=== PATIENT | male | born 1940 | race Caucasian/White ===

== ENCOUNTER → 2016-12-23 | Outpatient (CLI) | payer MEDICARE ==
[2016-12-23 12:31] LABS: Appearance,Urine Clear (Clear); Bilirubin,Urine Negative (Negative); Glucose,Urine (UA) Trace (Negative); Ketones,Urine Negative (Negative); Leukocyte Esterase,Urine Negative (Negative); Nitrite,Urine Negative (Negative); Protein,Urine Trace (Negative); Specific Gravity,Urine 1.012 (1.001-1.035); UA Billing (MACRO vs. MICRO) CHEM; Urobilinogen,Urine <2.0 mg/dL (<2.0)
[2016-12-23 13:26] LABS: % Iron Saturation 27.6 % (20-50)
== END | disposition home or self-care (01) ==
LOC: LABWHC1 11:54
PROVIDERS: ATTEND Nurse Practitioner Family
DX: D64.9 Anemia, unspecified (principal); E21.3 Hyperparathyroidism, unspecified; M10.9 Gout, unspecified; N39.0 Urinary tract infection, site not specified; Z94.0 Kidney transplant status
CPT/HCPCS: 36415; 81003; 82306; 82728; 83540; 83550; 83970

== ENCOUNTER → 2017-01-09 | Outpatient (CLI) | payer MEDICARE ==
[2017-01-09 10:20] LABS: Basophils % (A) 1 %; CHCM 31.9; Eosinophils # (A) 0.1 k/uL (0-0.7); Eosinophils % (A) 1 %; HCT 37.3 % (39.0-53.0); HDW 3.03; HGB 11.7 gm/dL (13.0-17.5); Hypochromasia Slight; Luc # (Auto) 0.13; Luc % (Auto) 2; Lymphocytes # (A) 1.6 k/uL (1.0-4.8); Lymphocytes % (A) 24 %; MCH 28.7 pg (25.0-35.0); MCHC 31.4 g/dL (31.0-37.0); MCV 91.5 fL (80.0-100.0); Mean Platelet Volume 7.2; Monocytes # (A) 0.4 k/uL (0-1.0); Monocytes % (A) 6 %; Neutrophils # (A) 4.3 k/uL (1.3-7.7); Neutrophils % (A) 66 %; RBC 4.08 m/uL (4.30-5.90); RDW 14.7 % (11.5-15.5); WBC 6.6 k/uL (3.8-10.6); WBC (Perox) 6.93
[2017-01-09 10:26] LABS: Appearance,Urine Clear (Clear); Bilirubin,Urine Negative (Negative); Glucose,Urine (UA) Trace (Negative); Ketones,Urine Negative (Negative); Leukocyte Esterase,Urine Negative (Negative); Nitrite,Urine Negative (Negative); PH, Urine 5.5 (5.0-8.0); Protein,Urine Trace (Negative); Specific Gravity,Urine 1.012 (1.001-1.035); UA Billing (MACRO vs. MICRO) CHEM; Urobilinogen,Urine <2.0 mg/dL (<2.0)
[2017-01-09 10:45] LABS: Calcium 9.6 mg/dL (8.4-10.2); Phosphorous 4.9 mg/dL (2.5-4.5); Potassium 4.9 mmol/L (3.5-5.1); Uric Acid 7.5 mg/dL (3.5-8.5)
[2017-01-09 10:53] LABS: % Iron Saturation 29.1 % (20-50)
== END | disposition home or self-care (01) ==
LOC: LABWHC1 09:48
PROVIDERS: ATTEND Internal Medicine Nephrology
DX: E55.9 Vitamin D deficiency, unspecified (principal); E21.3 Hyperparathyroidism, unspecified; D64.9 Anemia, unspecified; E11.9 Type 2 diabetes mellitus without complications; Z94.0 Kidney transplant status
CPT/HCPCS: 36415; 80048; 80197; 81003; 82306; 82728; 83540; 83550; 83735; 83970; 84100; 84550; 85025

== ENCOUNTER 2017-03-17 16:46 | Inpatient (IN) | payer MEDICARE ==
[2017-03-17] MEDS ORDERED: SODIUM CHLORIDE 0.9% 1,000 ML IV STA ×2 (18:40)
[2017-03-17] MEDS ORDERED: ONDANSETRON 4 MG/2 ML VIAL IVP STA (18:40)
--- NOTE | 2017-03-17 18:49 | ED ---
Abdominal Pain HPI - General Source: patient, RN notes reviewed, old records reviewed Mode of arrival: ambulatory Limitations: no limitations <Puja Putnam - Last Filed: 03/17/17 20:27> <Pino Prado - Last Filed: 03/17/17 21:39> - General Chief Complaint: Abdominal Pain Stated Complaint: Abd Pain Time Seen by Provider: 03/17/17 18:31 - History of Present Illness Initial Comments: Patient is a 76-year-old male with chief complaint of intermittent abdominal pain for the past 3 days. 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 Patient states that he is a nonsmoker does not take any alcohol. Patient states that the pain will be very sharp in the left upper quadrant. Patient states that history of pancreatitis times before and it seems similar to this. (Puja Putnam) - Related Data Home Medications Medication Instructions Recorded Confirmed Aspirin 81 mg PO DAILY 08/06/15 03/17/17 Insulin Detemir [Levemir] See Protocol SQ ACHS 08/06/15 03/17/17 predniSONE 5 mg PO DAILY 08/06/15 03/17/17 Metoprolol Succinate [Toprol XL] 100 mg PO DAILY 08/07/15 03/17/17 Tacrolimus 1 mg PO QAM 08/07/15 03/17/17 Tacrolimus 5 mg PO BID 08/07/15 03/17/17 Hydrochlorothiazide 12.5 mg PO DAILY 03/17/17 03/17/17 Pravastatin Sodium [Pravachol] 40 mg PO DAILY 03/17/17 03/17/17 Tacrolimus [Prograf] 2 mg PO HS 03/17/17 03/17/17 amLODIPine [Norvasc] 2.5 mg PO DAILY 03/17/17 03/17/17 Allergies Allergy/AdvReac Type Severity Reaction Status Date / Time No Known Allergies Allergy Verified 03/17/17 19:04 Review of Systems ROS Other: All systems not noted in ROS Statement are negative. <Puja Putnam - Last Filed: 03/17/17 20:27> ROS Other: All systems not noted in ROS Statement are negative. <Pino Prado - Last Filed: 03/17/17 21:39> ROS Statement: Those systems with pertinent positive or pertinent negative responses have been documented in the HPI. Past Medical History Past Medical History: Cancer, Diabetes Mellitus, Hypertension, Myocardial Infarction (MS), Renal Disease Additional Past Medical History / Comment(s): lung ca with jayesh lung transplant 2009, right kidney transplant 2013. AAA, PERITONITIS, panceratitis Last Myocardial Infarction Date:: 2013 History of Any Multi-Drug Resistant Organisms: None Reported Past Surgical History: Appendectomy, Cholecystectomy, Heart Catheterization With Stent, Orthopedic Surgery, Tonsillectomy Additional Past Surgical History / Comment(s): dialysis catheter removed 2013, left bka, facial surgery for cancer removal Past Anesthesia/Blood Transfusion Reactions: No Reported Reaction Additional Past Anesthesia/Blood Transfusion Reaction / Comment(s): HX BLOOD TRANSFUSION WITHOUT COMPLICATIONS Date of Last Stent Placement:: Past Psychological History: No Psychological Hx Reported Smoking Status: Never smoker Past Alcohol Use History: None Reported Additional Past Alcohol Use History / Comment(s): STARTED SMOKING AT AGE 20 SMOKED 1 PPD, QUIT IN 1991 Past Drug Use History: None Reported - Past Family History Father Additional Family Medical History / Comment(s): OF CANCER AT AGE 83 STARTED IN [place] HAD METS TO LIVER Mother Additional Family Medical History / Comment(s): FROM EMPHYSEMA AT AGE 80 <Puja Putnam - Last Filed: 03/17/17 20:27> General Exam Limitations: no limitations General appearance: alert, in no apparent distress Head exam: Present: atraumatic, normocephalic, normal inspection Eye exam: Present: normal appearance, PERRL, EOMI. Absent: scleral icterus, conjunctival injection, periorbital swelling ENT exam: Present: normal exam, normal oropharynx, mucous membranes moist Neck exam: Present: normal inspection. Absent: tenderness, meningismus, lymphadenopathy Respiratory exam: Present: normal lung sounds bilaterally. Absent: respiratory distress, wheezes, rales, rhonchi, stridor Cardiovascular Exam: Present: regular rate, normal rhythm, normal heart sounds. Absent: systolic murmur, diastolic murmur, rubs, gallop, clicks GI/Abdominal exam: Present: soft, tenderness (Mild left upper quadrant tenderness.), normal bowel sounds. Absent: distended, guarding, rebound, rigid Extremities exam: Present: normal inspection, full ROM, normal capillary refill. Absent: tenderness, pedal edema, joint swelling, calf tenderness Back exam: Present: normal inspection Neurological exam: Present: alert, oriented X3, CN II-XII intact Psychiatric exam: Present: normal affect, normal mood Skin exam: Present: warm, dry, intact, normal color. Absent: rash <Puja Putnam - Last Filed: 03/17/17 20:27> General appearance: alert, in no apparent distress Head exam: Present: atraumatic, normocephalic, normal inspection Eye exam: Present: normal appearance, PERRL, EOMI. Absent: scleral icterus, conjunctival injection, periorbital swelling ENT exam: Present: normal exam, mucous membranes moist Neck exam: Present: normal inspection. Absent: tenderness, meningismus, lymphadenopathy Respiratory exam: Present: normal lung sounds bilaterally. Absent: respiratory distress, wheezes, rales, rhonchi, stridor Cardiovascular Exam: Present: regular rate, normal rhythm, normal heart sounds. Absent: systolic murmur, diastolic murmur, rubs, gallop, clicks GI/Abdominal exam: Present: soft, normal bowel sounds. Absent: distended, tenderness, guarding, rebound, rigid Extremities exam: Present: normal inspection, full ROM, normal capillary refill. Absent: tenderness, pedal edema, joint swelling, calf tenderness Back exam: Present: normal inspection Neurological exam: Present: alert, oriented X3, CN II-XII intact Psychiatric exam: Present: normal affect, normal mood Skin exam: Present: warm, dry, intact, normal color. Absent: rash <Pino Prado - Last Filed: 03/17/17 21:39> - General Exam Comments Initial Comments: Well-appearing 76-year-old male. No distress. (Puja Putnam) Course <Puja Putnam - Last Filed: 03/17/17 20:27> <Pino Prado - Last Filed: 03/17/17 21:39> Vital Signs 03/17/17 03/17/17 16:49 21:26 Temperature 98.6 F 97.6 F Pulse Rate 72 67 Respiratory 18 18 Rate Blood Pressure 105/52 154/70 O2 Sat by Pulse 96 96 Oximetry - Reevaluation(s) Reevaluation #1: 03/17/17 21:39 Patient is having adequate pain control at this time (Pino Prado) Medical Decision Making - Lab Data Result diagrams: 03/17/17 18:57 03/17/17 18:57 - Radiology Data Radiology results: report reviewed <Puja Putnam - Last Filed: 03/17/17 20:27> - Lab Data Result diagrams: 03/17/17 18:57 03/17/17 18:57 <Pino Prado - Last Filed: 03/17/17 21:39> - Medical Decision Making 76 male to ER for evaluation. Patient does presents today for evaluation of severe abdominal pain, positive take it has, severe dehydration, positive renal failure. Patient be admitted for IV rehydration pain control and by mouth and IV hydration (Pino Prado) - Lab Data Lab Results 03/17/17 03/17/17 03/17/17 Range/Units 18:57 18:57 18:57 WBC 10.2 (3.8-10.6) k/uL RBC 4.38 (4.30-5.90) m/uL Hgb 12.8 L (13.0-17.5) gm/dL Hct 40.2 (39.0-53.0) % MCV 91.7 (80.0-100.0) fL MCH 29.2 (25.0-35.0) pg MCHC 31.9 (31.0-37.0) g/dL RDW 15.4 (11.5-15.5) % Plt Count 170 (150-450) k/uL Neutrophils % 73 % Lymphocytes % 19 % Monocytes % 6 % Eosinophils % 1 % Basophils % 0 % Neutrophils # 7.4 (1.3-7.7) k/uL Lymphocytes # 1.9 (1.0-4.8) k/uL Monocytes # 0.6 (0-1.0) k/uL Eosinophils # 0.1 (0-0.7) k/uL Basophils # 0.0 (0-0.2) k/uL PT 11.0 (9.0-12.0) sec INR 1.1 (<1.1) APTT 24.1 (22.0-30.0) sec Sodium 146 H (137-145) mmol/L Potassium 4.4 (3.5-5.1) mmol/L Chloride 105 (98-107) mmol/L Carbon Dioxide 26 (22-30) mmol/L Anion Gap 15 mmol/L BUN 91 H* (9-20) mg/dL Creatinine 3.62 H (0.66-1.25) mg/dL Est GFR (MDRD) Af Amer 20 (>60 ml/min/1.73 sqM) Est GFR (MDRD) Non-Af 17 (>60 ml/min/1.73 sqM) Glucose 85 (74-99) mg/dL Calcium 10.1 (8.4-10.2) mg/dL Total Bilirubin 0.6 (0.2-1.3) mg/dL AST 14 L (17-59) U/L ALT 23 (21-72) U/L Alkaline Phosphatase 91 (38-126) U/L Total Protein 8.0 (6.3-8.2) g/dL Albumin 4.5 (3.5-5.0) g/dL Amylase 299 H (30-110) U/L Lipase 1306 H (23-300) U/L Urine Color Urine Appearance (Clear) Urine pH (5.0-8.0) Ur Specific Sutton (1.001-1.035) Urine Protein (Negative) Urine Glucose (UA) (Negative) Urine Ketones (Negative) Urine Blood (Negative) Urine Nitrite (Negative) Urine Bilirubin (Negative) Urine Urobilinogen (<2.0) mg/dL Ur Leukocyte Esterase (Negative) Urine RBC (0-5) /hpf Urine WBC (0-5) /hpf Ur Squamous Epith Cells (0-4) /hpf Hyaline Casts (0-2) /lpf Urine Mucus (None) /hpf 03/17/17 Range/Units 18:57 WBC (3.8-10.6) k/uL RBC (4.30-5.90) m/uL Hgb (13.0-17.5) gm/dL Hct (39.0-53.0) % MCV (80.0-100.0) fL MCH (25.0-35.0) pg MCHC (31.0-37.0) g/dL RDW (11.5-15.5) % Plt Count (150-450) k/uL Neutrophils % % Lymphocytes % % Monocytes % % Eosinophils % % Basophils % % Neutrophils # (1.3-7.7) k/uL Lymphocytes # (1.0-4.8) k/uL Monocytes # (0-1.0) k/uL Eosinophils # (0-0.7) k/uL Basophils # (0-0.2) k/uL PT (9.0-12.0) sec INR (<1.1) APTT (22.0-30.0) sec Sodium (137-145) mmol/L Potassium (3.5-5.1) mmol/L Chloride (98-107) mmol/L Carbon Dioxide (22-30) mmol/L Anion Gap mmol/L BUN (9-20) mg/dL Creatinine (0.66-1.25) mg/dL Est GFR (MDRD) Af Amer (>60 ml/min/1.73 sqM) Est GFR (MDRD) Non-Af (>60 ml/min/1.73 sqM) Glucose (74-99) mg/dL Calcium (8.4-10.2) mg/dL Total Bilirubin (0.2-1.3) mg/dL AST (17-59) U/L ALT (21-72) U/L Alkaline Phosphatase (38-126) U/L Total Protein (6.3-8.2) g/dL Albumin (3.5-5.0) g/dL Amylase (30-110) U/L Lipase (23-300) U/L Urine Color Light Yellow Urine Appearance Clear (Clear) Urine pH 5.5 (5.0-8.0) Ur Specific Sutton 1.012 (1.001-1.035) Urine Protein 1+ H (Negative) Urine Glucose (UA) 1+ H (Negative) Urine Ketones 1+ H (Negative) Urine Blood Trace H (Negative) Urine Nitrite Negative (Negative) Urine Bilirubin Negative (Negative) Urine Urobilinogen <2.0 (<2.0) mg/dL Ur Leukocyte Esterase Negative (Negative) Urine RBC <1 (0-5) /hpf Urine WBC 1 (0-5) /hpf Ur Squamous Epith Cells <1 (0-4) /hpf Hyaline Casts 3 H (0-2) /lpf Urine Mucus Rare H (None) /hpf Disposition Time of Disposition: 20:21 <Puja Putnam - Last Filed: 03/17/17 20:27> <Pino Prado - Last Filed: 03/17/17 21:39> Clinical Impression: Pancreatitis, Acute renal insufficiency, Anemia, Kidney transplant recipient, History of lung transplant, Diabetes Disposition: ADMITTED IP TO THIS HOSP Condition: Stable
[2017-03-17 19:02] LABS: Basophils % (A) 0 %; CH 29.5; CHCM 32.4; Eosinophils # (A) 0.1 k/uL (0-0.7); Eosinophils % (A) 1 %; HCT 40.2 % (39.0-53.0); HGB 12.8 gm/dL (13.0-17.5); Luc # (Auto) 0.15; Luc % (Auto) 1; Lymphocytes # (A) 1.9 k/uL (1.0-4.8); Lymphocytes % (A) 19 %; MCH 29.2 pg (25.0-35.0); MCHC 31.9 g/dL (31.0-37.0); MCV 91.7 fL (80.0-100.0); Mean Platelet Volume 7.5; Monocytes # (A) 0.6 k/uL (0-1.0); Monocytes % (A) 6 %; Neutrophils # (A) 7.4 k/uL (1.3-7.7); Neutrophils % (A) 73 %; RBC 4.38 m/uL (4.30-5.90); RDW 15.4 % (11.5-15.5); WBC 10.2 k/uL (3.8-10.6); WBC (Perox) 10.02
[2017-03-17 19:05] LABS: Appearance,Urine Clear (Clear); Bilirubin,Urine Negative (Negative); Glucose,Urine (UA) 1+ (Negative); Ketones,Urine 1+ (Negative); Leukocyte Esterase,Urine Negative (Negative); Mucus,Urine Rare /hpf; Nitrite,Urine Negative (Negative); PH, Urine 5.5 (5.0-8.0); Particle Count 2215; Protein,Urine 1+ (Negative); RBC,Urine <1 /hpf (0-5); Specific Gravity,Urine 1.012 (1.001-1.035); Squamous Epithelial Cell,Urine <1 /hpf (0-4); UA Billing (MACRO vs. MICRO) MICRO; Urobilinogen,Urine <2.0 mg/dL (<2.0); WBC,Urine 1 /hpf (0-5)
[2017-03-17 19:11] LABS: INR 1.1 (<1.1)
[2017-03-17 19:12] LABS: Partial Thromboplastin Time 24.1 sec (22.0-30.0)
[2017-03-17] MEDS ORDERED: HYDROmorphone 1 MG/ML 1 ML SYRINGE IVP STA (19:18)
[2017-03-17 19:19] LABS: Calcium 10.1 mg/dL (8.4-10.2); Potassium 4.4 mmol/L (3.5-5.1); Total Bilirubin 0.6 mg/dL (0.2-1.3)
--- NOTE | 2017-03-17 19:21 | XR ---
EXAMINATION TYPE: XR KUB DATE OF EXAM: 03/17/2017 7:10 PM COMPARISON: 08/06/2015 HISTORY: Epigastric pain TECHNIQUE: 2 views FINDINGS: There is no sign of intestinal obstruction or pneumoperitoneum. Fecal pattern is normal. Th ere are clips from cholecystectomy. There is curvilinear calcification in the mid abdomen that could relate to aortic aneurysm. There is no evidence of a renal calculus. IMPRESSION: aortic aneurysm that is also demonstrated on the old CT scan of 08/25/2013.. No change com pared to last exam. Nonacute abdomen.
[2017-03-17] MEDS ORDERED: HYDROcodone/APAP 5-325MG 1 EACH TAB PO PRN (20:22)
[2017-03-17] MEDS ORDERED: NALOXONE 0.4 MG/ML 1 ML VIAL IV PRN (20:22)
[2017-03-17] MEDS ORDERED: ACETAMINOPHEN TAB 325 MG TAB PO PRN (20:22)
[2017-03-17] MEDS: SODIUM CHLORIDE 0.9% 1,000 ML IV SCH ×2 (20:28→23:55)
[2017-03-17] MEDS ORDERED: DEXTROSE 5%-0.45% NACL 1,000 ML IV ONE (21:25)
[2017-03-17] MEDS ORDERED: TACROLIMUS 1 MG CAP PO SCH ×2 (22:00)
[2017-03-17 22:09] LABS: Glucose,Whole Blood 73 mg/dL (75-99)
[2017-03-17] MEDS: TACROLIMUS 1 MG CAP PO SCH (22:09)
[2017-03-17 22:24] VITALS: BMI 28.3
[2017-03-17] MEDS: HYDROmorphone 1 MG/ML 1 ML SYRINGE IV PRN (23:40)
[2017-03-18 00:52] LABS: Glucose,Whole Blood 116 mg/dL (75-99)
[2017-03-18] MEDS: SODIUM CHLORIDE 0.9% 1,000 ML IV SCH ×2 (05:32→08:03)
[2017-03-18] MEDS: HYDROmorphone 1 MG/ML 1 ML SYRINGE IV PRN ×2 (06:33→18:22)
[2017-03-18 07:50] LABS: Glucose,Whole Blood 184 mg/dL (75-99)
[2017-03-18] MEDS: INSULIN LISPRO (humaLOG) 300 UNIT/3 ML VIAL SQ SCH ×3 (08:05→17:15)
[2017-03-18] MEDS: amLODIPine 2.5 MG TAB PO SCH (08:06)
[2017-03-18] MEDS: predniSONE 5 MG TAB PO SCH (08:06)
[2017-03-18] MEDS: METOPROLOL SUCCINATE (ER) 100 MG TAB.ER.24H PO SCH (08:06)
[2017-03-18] MEDS: ASPIRIN 81 MG CHEW PO SCH (08:06)
[2017-03-18] MEDS: PRAVASTATIN SODIUM 40 MG TAB PO SCH (08:06)
[2017-03-18] MEDS: PANTOPRAZOLE 40 MG/10 ML VIAL IV SCH (08:07)
[2017-03-18] MEDS: TACROLIMUS 1 MG CAP PO SCH ×2 (08:07→20:45)
[2017-03-18] MEDS ORDERED: TACROLIMUS 1 MG CAP PO SCH (09:00)
[2017-03-18] MEDS ORDERED: HYDROCHLOROTHIAZIDE 12.5 MG CAP PO SCH (09:00)
[2017-03-18 10:58] LABS: Basophils % (A) 0 %; CH 29.2; CHCM 31.4; Eosinophils # (A) 0.1 k/uL (0-0.7); Eosinophils % (A) 1 %; HCT 34.5 % (39.0-53.0); HDW 2.99; HGB 10.6 gm/dL (13.0-17.5); Hypochromasia Slight; Luc # (Auto) 0.09; Luc % (Auto) 1; Lymphocytes # (A) 0.9 k/uL (1.0-4.8); Lymphocytes % (A) 13 %; MCH 28.8 pg (25.0-35.0); MCHC 30.8 g/dL (31.0-37.0); MCV 93.6 fL (80.0-100.0); Mean Platelet Volume 7.2; Monocytes # (A) 0.4 k/uL (0-1.0); Monocytes % (A) 6 %; Neutrophils # (A) 5.5 k/uL (1.3-7.7); Neutrophils % (A) 79 %; RBC 3.69 m/uL (4.30-5.90); RDW 15.2 % (11.5-15.5); WBC (Perox) 7.49
[2017-03-18 11:28] LABS: Calcium 8.9 mg/dL (8.4-10.2); Total Bilirubin 0.5 mg/dL (0.2-1.3); Total Protein 6.3 g/dL (6.3-8.2)
--- NOTE | 2017-03-18 11:43 | P.NPCON ---
History of Present Illness - Reason for Consult acute renal failure - History of Present Illness Reason for consultation: Acute kidney injury on chronic kidney disease and renal transplant management History of present illness: Patient is a 76-year-old male seen in renal consultation for acute kidney injury on chronic kidney disease and renal transplant management. Patient received a living related renal allograft from his daughter in 2013 at [facility]. He also underwent bilateral lung transplantation in 2009. Patient developed BK nephropathy and his baseline creatinine is in the range of 2.5-3. His creatinine was 3.6 on admission and is improved to 3.3 today. Vision has history of pancreatitis and presents to the hospital with abdominal pain. His lipase level was greater than 1300. He is currently nothing by mouth and is maintained on IV fluids. Denies chest pain or shortness of breath. His oral intake for the last few days has been poor. Denies diarrhea. He did have some vomiting which is now resolved. Denies hematuria or dysuria. Denies use of NSAIDs. No other complaints at this time. Abdominal pain is improved. Vital signs are stable. General: The patient appeared well nourished and normally developed. HEENT: Head exam is unremarkable. Neck is without jugular venous distension. LUNGS: Lungs are clear to auscultation and percussion. Breath sounds decreased. HEART: Rate and Rhythm are regular. First and second heart sounds normal. No murmurs, rubs or gallops. ABDOMEN: Abdominal exam reveals normal bowel sounds. Non-tender and non- distended. No evidence of peritonitis. EXTREMITITES: No clubbing, cyanosis, or edema. Past Medical History Past Medical History: Cancer, Diabetes Mellitus, Hypertension, Myocardial Infarction (MS), Renal Disease Additional Past Medical History / Comment(s): lung ca with jayesh lung transplant 2009, right kidney transplant 2013. AAA, PERITONITIS, panceratitis Last Myocardial Infarction Date:: 2013 History of Any Multi-Drug Resistant Organisms: None Reported Past Surgical History: Appendectomy, Cholecystectomy, Heart Catheterization With Stent, Orthopedic Surgery, Tonsillectomy Additional Past Surgical History / Comment(s): dialysis catheter removed 2013, left bka, facial surgery for cancer removal Past Anesthesia/Blood Transfusion Reactions: No Reported Reaction Additional Past Anesthesia/Blood Transfusion Reaction / Comment(s): HX BLOOD TRANSFUSION WITHOUT COMPLICATIONS Date of Last Stent Placement:: Past Psychological History: No Psychological Hx Reported Smoking Status: Never smoker Past Alcohol Use History: None Reported Additional Past Alcohol Use History / Comment(s): STARTED SMOKING AT AGE 20 SMOKED 1 PPD, QUIT IN 1991 Past Drug Use History: None Reported - Past Family History Father Additional Family Medical History / Comment(s): OF CANCER AT AGE 83 STARTED IN [place] HAD METS TO LIVER Mother Additional Family Medical History / Comment(s): FROM EMPHYSEMA AT AGE 80 Medications and Allergies Home Medications Medication Instructions Recorded Confirmed Type Aspirin 81 mg PO DAILY 08/06/15 03/17/17 History Insulin Detemir [Levemir] See Protocol SQ ACHS 08/06/15 06/13/16 History predniSONE 5 mg PO DAILY 08/06/15 03/17/17 History Metoprolol Succinate [Toprol XL] 100 mg PO DAILY 08/07/15 03/17/17 History Tacrolimus 1 mg PO QAM 08/07/15 03/17/17 History Tacrolimus 5 mg PO BID 08/07/15 03/17/17 History Hydrochlorothiazide 12.5 mg PO DAILY 03/17/17 03/17/17 History Pravastatin Sodium [Pravachol] 40 mg PO DAILY 03/17/17 03/17/17 History Tacrolimus [Prograf] 2 mg PO HS 03/17/17 03/17/17 History amLODIPine [Norvasc] 2.5 mg PO DAILY 03/17/17 03/17/17 History Allergies Allergy/AdvReac Type Severity Reaction Status Date / Time No Known Allergies Allergy Verified 03/17/17 19:04 Physical Exam Vitals: Vital Signs Temp Pulse Pulse Resp BP BP Pulse Ox 03/18/17 07:00 98.0 F 80 22 121/55 91 L 03/17/17 22:33 97.6 F 68 18 158/80 92 L 03/17/17 21:26 97.6 F 67 18 154/70 96 Intake and Output 03/17/17 03/18/17 03/18/17 22:59 06:59 14:59 Intake Total 0 Output Total 450 Balance -450 Intake: Oral 0 Output: Urine 450 Other: # Voids 1 Weight 77.111 kg Results - Lab Results Most recent lab results Calcium 8.9 mg/dL (8.4-10.2) 03/18/17 10:32 03/18/17 10:32 03/18/17 10:32 Assessment and Plan Plan: Assessment: #1. Nonoliguric acute kidney injury mostly prerenal in nature secondary to vomiting and poor oral intake. He was also on diuretics. Creatinine was 3.6 on admission and is improved to 3.3 today. #2. Living related renal allograft from 2013 at [facility]. 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 #4. Acute pancreatitis. #5. Diabetes mellitus. #6. Hypertension with chronic any disease. Uncontrolled. Plan: I will change IV fluids to D5 normal saline to be run at 125 mL an hour. Avoid nephrotoxic agents and hypotensive episodes. Hold diuretics. Check Prograf level. GI recommendations pending. Currently nothing by mouth. Repeat electrolytes in the morning. Maintain Prograf and prednisone at current doses. Thank you for the consultation. I will continue to follow the patient with you during his hospital stay.
[2017-03-18 12:27] LABS: Glucose,Whole Blood 168 mg/dL (75-99)
[2017-03-18] MEDS: DEXTROSE 5%-0.9% NACL 1,000 ML IV SCH ×2 (13:02→20:45)
[2017-03-18 17:15] LABS: Glucose,Whole Blood 199 mg/dL (75-99)
[2017-03-18 21:16] LABS: Glucose,Whole Blood 167 mg/dL (75-99)
[2017-03-19] MEDS: DEXTROSE 5%-0.9% NACL 1,000 ML IV SCH ×2 (02:42→09:23)
[2017-03-19 07:20] LABS: Calcium 8.9 mg/dL (8.4-10.2); Potassium 4.5 mmol/L (3.5-5.1)
[2017-03-19 07:50] LABS: Glucose,Whole Blood 236 mg/dL (75-99)
[2017-03-19] MEDS: predniSONE 5 MG TAB PO SCH (08:07)
[2017-03-19] MEDS: PANTOPRAZOLE 40 MG/10 ML VIAL IV SCH (08:07)
[2017-03-19] MEDS: INSULIN LISPRO (humaLOG) 300 UNIT/3 ML VIAL SQ SCH ×3 (08:07→18:25)
[2017-03-19] MEDS: METOPROLOL SUCCINATE (ER) 100 MG TAB.ER.24H PO SCH (08:07)
[2017-03-19] MEDS: amLODIPine 2.5 MG TAB PO SCH (08:08)
[2017-03-19] MEDS: TACROLIMUS 1 MG CAP PO SCH ×2 (08:08→20:20)
[2017-03-19] MEDS: ASPIRIN 81 MG CHEW PO SCH (08:08)
--- NOTE | 2017-03-19 08:38 | XR ---
EXAMINATION TYPE: XR chest 2V DATE OF EXAM: 03/19/2017 8:20 AM COMPARISON: 08/06/2015 INDICATION: Cough TECHNIQUE: Single frontal view of the chest is obtained. FINDINGS: The heart size is normal. The pulmonary vasculature is normal. Mild infiltrate is within the lingula with silhouetting left heart border. Minimal infiltrate is not excluded at the right base. Some underlying scarring is not excluded. IMPRESSION: 1. Mild bibasilar infiltrates greater in the lingula. Follow-up is recommended.
[2017-03-19] MEDS: PRAVASTATIN SODIUM 40 MG TAB PO SCH (09:20)
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
--- NOTE | 2017-03-19 10:18 | P.PN ---
Subjective Patient is seen in follow-up for acute kidney injury on chronic kidney disease. 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 His creatinine was 3.6 on admission and is down to 2.67 today with IV hydration. His lipase level is also down to 450. Abdominal pain is improved. No vomiting or diarrhea. Patient received a living related renal allograft in 2013 at [facility]. He also has history of bilateral lung transplant from 2009. Denies chest pain or shortness of breath. Admits to good urine output. Vital signs are stable. General: The patient appeared well nourished and normally developed. HEENT: Head exam is unremarkable. Neck is without jugular venous distension. LUNGS: Lungs are clear to auscultation and percussion. Breath sounds decreased. HEART: Rate and Rhythm are regular. First and second heart sounds normal. No murmurs, rubs or gallops. ABDOMEN: Abdominal exam reveals normal bowel sounds. Non-tender and non- distended. No evidence of peritonitis. EXTREMITITES: No clubbing, cyanosis, or edema. Objective - Vital Signs Vital signs: Vital Signs Temp 97.1 F L 03/19/17 07:00 Pulse 63 03/19/17 07:00 Resp 20 03/19/17 07:00 BP 151/78 03/19/17 07:00 Pulse Ox 96 03/19/17 07:00 Intake & Output 03/18/17 03/19/17 03/19/17 18:59 06:59 18:59 Intake Total 800 0 Output Total 600 450 Balance 200 -450 Intake: IV 800 Dextrose 5%-0.45% NaCl 1, 400 000 ml @ 100 mls/hr IV . Q10H ONE Rx#:[id number] Dextrose 5%-0.9% NaCl 1, 400 000 ml @ 125 mls/hr IV . Q8H ADDI Rx#:[id number] Oral 0 Output: Urine 600 450 Other: # Voids 2 - Labs CBC & Chem 7: 03/18/17 10:32 03/19/17 05:28 Labs: Abnormal Lab Results - Last 24 Hours (Table) 03/18/17 03/18/17 03/18/17 Range/Units 10:32 10:32 12:09 RBC 3.69 L (4.30-5.90) m/uL Hgb 10.6 L (13.0-17.5) gm/dL Hct 34.5 L (39.0-53.0) % MCHC 30.8 L (31.0-37.0) g/dL Plt Count 137 L (150-450) k/uL Lymphocytes # 0.9 L (1.0-4.8) k/uL Sodium (137-145) mmol/L Chloride 111 H (98-107) mmol/L Carbon Dioxide (22-30) mmol/L BUN 73 H (9-20) mg/dL Creatinine 3.30 H (0.66-1.25) mg/dL Glucose 141 H (74-99) mg/dL POC Glucose (mg/dL) 168 H (75-99) mg/dL AST 10 L (17-59) U/L Amylase (30-110) U/L Lipase (23-300) U/L 03/18/17 03/18/17 03/19/17 Range/Units 17:11 21:12 05:28 RBC (4.30-5.90) m/uL Hgb (13.0-17.5) gm/dL Hct (39.0-53.0) % MCHC (31.0-37.0) g/dL Plt Count (150-450) k/uL Lymphocytes # (1.0-4.8) k/uL Sodium 147 H (137-145) mmol/L Chloride 116 H (98-107) mmol/L Carbon Dioxide 20 L (22-30) mmol/L BUN 55 H (9-20) mg/dL Creatinine 2.67 H (0.66-1.25) mg/dL Glucose 226 H (74-99) mg/dL POC Glucose (mg/dL) 199 H 167 H (75-99) mg/dL AST (17-59) U/L Amylase 153 H (30-110) U/L Lipase 450 H (23-300) U/L 03/19/17 Range/Units 07:47 RBC (4.30-5.90) m/uL Hgb (13.0-17.5) gm/dL Hct (39.0-53.0) % MCHC (31.0-37.0) g/dL Plt Count (150-450) k/uL Lymphocytes # (1.0-4.8) k/uL Sodium (137-145) mmol/L Chloride (98-107) mmol/L Carbon Dioxide (22-30) mmol/L BUN (9-20) mg/dL Creatinine (0.66-1.25) mg/dL Glucose (74-99) mg/dL POC Glucose (mg/dL) 236 H (75-99) mg/dL AST (17-59) U/L Amylase (30-110) U/L Lipase (23-300) U/L Assessment and Plan Plan: Assessment: #1. Nonoliguric acute kidney injury mostly prerenal in nature secondary to vomiting and poor oral intake. He was also on diuretics. Creatinine was 3.6 on admission and is improved to 2.67 today. #2. Living related renal allograft from 2013 at [facility]. 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 #4. Acute pancreatitis. #5. Diabetes mellitus. #6. Hypertension with chronic any disease. #7. Hypernatremia due to lack off oral water intake. #8. Metabolic acidosis secondary to acute kidney injury as well as IV fluids. Plan: I will change IV fluids to D5 half-normal saline to be run at 125 mL an hour. Avoid nephrotoxic agents and hypotensive episodes. Hold diuretics. Check Prograf level. GI recommendations pending. Currently nothing by mouth. Repeat electrolytes in the morning. Maintain Prograf and prednisone at current doses.
--- NOTE | 2017-03-19 11:27 | P.CONS ---
History of Present Illness - Reason for Consult Consult date: 03/18/17 Acute pancreatitis - History of Present Illness The patient is a 76-year-old male who presented with the complaint of abdominal pain, nausea and vomiting of 3 days' duration. The patient was evaluated in the emergency room and found to have elevated amylase at 299 and elevated lipase at 1306. His BUN was 73 and creatinine 3.6 on admission.we were asked to see him regarding acute pancreatitis. The patient apparently had similar episodes in the past and this could be his second or third episode. His liver enzymes were normal. There is no history of alcohol consumption. S/P cholecystectomy. The patient's abdominal pains and vomiting has resolved. His amylase and lipase are improving but not normalized yet. Is still NPO. He was seen in renal consultation for acute kidney injury on chronic kidney disease and renal transplant management. Patient received a living related right renal allograft from his daughter in 2013 at [facility]. He also underwent bilateral lung transplantation in 2009. Patient developed BK nephropathy and his baseline creatinine is in the range of 2.5-3. His creatinine has improved to 3.3 today. Review of Systems Constitutional: Denied fever or chills. Neurologic: No headaches, double vision or other sensory or motor changes Cardiopulmonary: No chest pains, shortness of breath or palpitations. History of HTN and CAHD S/P AR, Bilateral lung transplants in 2009 Gastrointestinal: See present illness above Genitourinary: No hematuria, dysuria or frequency. CKD as detailed in PI above Skin: History of skin cancer left face recently excised ? incompletely Endocrine: History of diabetes, no thyroid disease Musculoskeletal: No joint pain or swelling Hematologic: History of anemia, no bleeding tendency Psychiatric: No anxiety, has history of depression Past Medical History Past Medical History: Cancer, Diabetes Mellitus, Hypertension, Myocardial Infarction (AR), Renal Disease Additional Past Medical History / Comment(s): lung ca with jayesh lung transplant 2009, right kidney transplant 2013. AAA, PERITONITIS, panceratitis Last Myocardial Infarction Date:: 2013 History of Any Multi-Drug Resistant Organisms: None Reported Past Surgical History: Appendectomy, Cholecystectomy, Heart Catheterization With Stent, Orthopedic Surgery, Tonsillectomy Additional Past Surgical History / Comment(s): dialysis catheter removed 2013, left bka, facial surgery for cancer removal Past Anesthesia/Blood Transfusion Reactions: No Reported Reaction Additional Past Anesthesia/Blood Transfusion Reaction / Comm: HX BLOOD TRANSFUSION WITHOUT COMPLICATIONS Date of Last Stent Placement:: Past Psychological History: No Psychological Hx Reported Smoking Status: Never smoker Past Alcohol Use History: None Reported Additional Past Alcohol Use History / Comment(s): STARTED SMOKING AT AGE 20 SMOKED 1 PPD, QUIT IN 1991 Past Drug Use History: None Reported - Past Family History Father Additional Family Medical History / Comment(s): OF CANCER AT AGE 83 STARTED IN [place] HAD METS TO LIVER Mother Additional Family Medical History / Comment(s): FROM EMPHYSEMA AT AGE 80 Medications and Allergies Home Medications Medication Instructions Recorded Confirmed Type Aspirin 81 mg PO DAILY 08/06/15 03/17/17 History Insulin Detemir [Levemir] See Protocol SQ ACHS 08/06/15 06/13/16 History predniSONE 5 mg PO DAILY 08/06/15 03/17/17 History Metoprolol Succinate [Toprol XL] 100 mg PO DAILY 08/07/15 03/17/17 History Tacrolimus 1 mg PO QAM 08/07/15 03/17/17 History Tacrolimus 5 mg PO BID 08/07/15 03/17/17 History Hydrochlorothiazide 12.5 mg PO DAILY 03/17/17 03/17/17 History Pravastatin Sodium [Pravachol] 40 mg PO DAILY 03/17/17 03/17/17 History Tacrolimus [Prograf] 2 mg PO HS 03/17/17 03/17/17 History amLODIPine [Norvasc] 2.5 mg PO DAILY 03/17/17 03/17/17 History Allergies Allergy/AdvReac Type Severity Reaction Status Date / Time No Known Allergies Allergy Verified 03/17/17 19:04 Physical Exam Vitals: Vital Signs Temp Pulse Pulse Resp BP BP Pulse Ox 03/18/17 07:00 98.0 F 80 22 121/55 91 L 03/17/17 22:33 97.6 F 68 18 158/80 92 L 03/17/17 21:26 97.6 F 67 18 154/70 96 Intake and Output 03/17/17 03/18/17 03/18/17 22:59 06:59 14:59 Intake Total 0 800 Output Total 450 Balance -450 800 Intake: IV 800 Dextrose 5%-0.45% NaCl 1, 400 000 ml @ 100 mls/hr IV . Q10H ONE Rx#:[id number] Dextrose 5%-0.9% NaCl 1, 400 000 ml @ 125 mls/hr IV . Q8H ADDI Rx#:[id number] Oral 0 Output: Urine 450 Other: # Voids 1 Weight 77.111 kg General: Appears stated age, very pleasant in no acute distress Head and neck: Normocephalic and atraumatic, area of skin cancer excision left cheek noted, conjunctivae pink and sclerae not icteric. No masses in the neck or tracheal shifts. No adenopathy or thyromegaly Lungs: Clear to auscultation with no dullness to percussion Heart: Regular, no abnormal sounds, murmurs, gallops or friction rubs Abdomen: Soft, no masses or organomegalies. Mild tenderness in epigastric area. Bowel sounds present Extremities: No clubbing, cyanosis or edema Neurologic: Alert and oriented 3. Cranial nerves grossly intact, no gross sensory or motor abnormalities Results CBC & Chem 7: 03/18/17 10:32 03/19/17 05:28 Labs: Abnormal Lab Results - Last 24 Hours (Table) 03/17/17 03/18/17 03/18/17 Range/Units 22:08 00:48 07:35 RBC (4.30-5.90) m/uL Hgb (13.0-17.5) gm/dL Hct (39.0-53.0) % MCHC (31.0-37.0) g/dL Plt Count (150-450) k/uL Lymphocytes # (1.0-4.8) k/uL Chloride (98-107) mmol/L BUN (9-20) mg/dL Creatinine (0.66-1.25) mg/dL Glucose (74-99) mg/dL POC Glucose (mg/dL) 73 L 116 H 184 H (75-99) mg/dL AST (17-59) U/L 03/18/17 03/18/17 03/18/17 Range/Units 10:32 10:32 12:09 RBC 3.69 L (4.30-5.90) m/uL Hgb 10.6 L (13.0-17.5) gm/dL Hct 34.5 L (39.0-53.0) % MCHC 30.8 L (31.0-37.0) g/dL Plt Count 137 L (150-450) k/uL Lymphocytes # 0.9 L (1.0-4.8) k/uL Chloride 111 H (98-107) mmol/L BUN 73 H (9-20) mg/dL Creatinine 3.30 H (0.66-1.25) mg/dL Glucose 141 H (74-99) mg/dL POC Glucose (mg/dL) 168 H (75-99) mg/dL AST 10 L (17-59) U/L Assessment and Plan Plan: The presentation of this patient is consistent with acute pancreatitis. 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 His liver enzymes are normal, he had prior cholecystectomy, and does not drink alcohol and is not on any new medication to incriminate. He seems to be following a mild course and his symptoms and enzymes are already improving although not back to normal. No suggestions of complications of pancreatitis at this time or of a fulminant course. Agree with current management. Will allow ice chips and sips of water and consider advancing to liquid diets in the course of the day depending on his symptoms. We will reevaluate tomorrow and consider further advancement of his diet. Other changes based on his course. We will follow with you with interest.
[2017-03-19 12:32] LABS: Glucose,Whole Blood 185 mg/dL (75-99)
[2017-03-19] MEDS: DEXTROSE 5%-0.45% NACL 1,000 ML IV SCH ×3 (12:32→23:43)
[2017-03-19 17:37] LABS: Glucose,Whole Blood 235 mg/dL (75-99)
[2017-03-19] MEDS: DOXYCYCLINE 100 MG in SODIUM CHLORIDE 0.9% 100 ML IVPB SCH (20:20)
[2017-03-19 21:09] LABS: Glucose,Whole Blood 203 mg/dL (75-99)
[2017-03-20] MEDS: DEXTROSE 5%-0.45% NACL 1,000 ML IV SCH (05:43)
[2017-03-20 06:53] LABS: Glucose,Whole Blood 251 mg/dL (75-99)
[2017-03-20 07:17] VITALS: RESP 20
[2017-03-20] MEDS: PRAVASTATIN SODIUM 40 MG TAB PO SCH (07:56)
[2017-03-20] MEDS: predniSONE 5 MG TAB PO SCH (07:56)
[2017-03-20] MEDS: INSULIN LISPRO (humaLOG) 300 UNIT/3 ML VIAL SQ SCH ×2 (07:57→13:32)
[2017-03-20] MEDS: PANTOPRAZOLE 40 MG/10 ML VIAL IV SCH (07:57)
[2017-03-20] MEDS: METOPROLOL SUCCINATE (ER) 100 MG TAB.ER.24H PO SCH (07:57)
[2017-03-20] MEDS: ASPIRIN 81 MG CHEW PO SCH (07:57)
[2017-03-20] MEDS: amLODIPine 2.5 MG TAB PO SCH (07:57)
[2017-03-20 08:45] LABS: Basophils % (A) 0 %; CHCM 31.5; Eosinophils # (A) 0.1 k/uL (0-0.7); Eosinophils % (A) 2 %; HCT 32.5 % (39.0-53.0); HDW 3.08; Hypochromasia Slight; Luc # (Auto) 0.06; Luc % (Auto) 1; Lymphocytes # (A) 0.9 k/uL (1.0-4.8); Lymphocytes % (A) 19 %; MCH 28.5 pg (25.0-35.0); MCHC 30.7 g/dL (31.0-37.0); MCV 92.8 fL (80.0-100.0); Mean Platelet Volume 6.7; Monocytes # (A) 0.2 k/uL (0-1.0); Monocytes % (A) 5 %; Neutrophils # (A) 3.6 k/uL (1.3-7.7); Neutrophils % (A) 72 %; RDW 14.9 % (11.5-15.5)
[2017-03-20 09:04] LABS: Calcium 8.8 mg/dL (8.4-10.2); Potassium 4.2 mmol/L (3.5-5.1)
[2017-03-20] MEDS: TACROLIMUS 1 MG CAP PO SCH (09:12)
[2017-03-20] MEDS: DOXYCYCLINE 100 MG in SODIUM CHLORIDE 0.9% 100 ML IVPB SCH (09:13)
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
[2017-03-20 11:53] LABS: Glucose,Whole Blood 157 mg/dL (75-99)
--- NOTE | 2017-03-20 12:11 | P.PN ---
Subjective Patient is seen in follow-up for acute kidney injury on chronic kidney disease. 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 His creatinine was 3.6 on admission and is down to 2.26 today with IV hydration. His lipase level was also down to 450 as of yesterday. Abdominal pain is improved. No vomiting or diarrhea. Patient received a living related renal allograft in 2013 at [facility]. He also has history of bilateral lung transplant from 2009. Denies chest pain or shortness of breath. Admits to good urine output. He has been started on an oral diet and is tolerating it well. Vital signs are stable. General: The patient appeared well nourished and normally developed. HEENT: Head exam is unremarkable. Neck is without jugular venous distension. LUNGS: Lungs are clear to auscultation and percussion. Breath sounds decreased. HEART: Rate and Rhythm are regular. First and second heart sounds normal. No murmurs, rubs or gallops. ABDOMEN: Abdominal exam reveals normal bowel sounds. Non-tender and non- distended. No evidence of peritonitis. EXTREMITITES: No clubbing, cyanosis, or edema. Objective - Vital Signs Vital signs: Vital Signs Temp 98.0 F 03/20/17 07:00 Pulse 64 03/20/17 07:00 Resp 20 03/20/17 07:00 BP 191/80 03/20/17 07:00 Pulse Ox 96 03/20/17 07:00 Intake & Output 03/19/17 03/20/17 03/20/17 18:59 06:59 18:59 Intake Total 1050 580 Output Total 1000 500 Balance 50 80 Intake: IV 1000 Dextrose 5%-0.9% NaCl 1, 1000 000 ml @ 125 mls/hr IV . Q8H ADDI Rx#:[id number] Intake, IV Titration 50 Amount cefTRIAXone 1,000 mg In 50 Sodium Chloride 0.9% 50 ml @ 100 mls/hr IVPB Q24HR ADDI Rx#:[id number] Oral 580 Output: Urine 1000 500 Other: # Voids 1 - Labs CBC & Chem 7: 03/20/17 07:54 03/20/17 07:52 Labs: Abnormal Lab Results - Last 24 Hours (Table) 03/19/17 03/19/17 03/19/17 Range/Units 12:29 17:17 20:56 RBC (4.30-5.90) m/uL Hgb (13.0-17.5) gm/dL Hct (39.0-53.0) % MCHC (31.0-37.0) g/dL Lymphocytes # (1.0-4.8) k/uL Chloride (98-107) mmol/L Carbon Dioxide (22-30) mmol/L BUN (9-20) mg/dL Creatinine (0.66-1.25) mg/dL Glucose (74-99) mg/dL POC Glucose (mg/dL) 185 H 235 H 203 H (75-99) mg/dL 03/20/17 03/20/17 03/20/17 Range/Units 06:52 07:52 07:54 RBC 3.50 L (4.30-5.90) m/uL Hgb 10.0 L (13.0-17.5) gm/dL Hct 32.5 L (39.0-53.0) % MCHC 30.7 L (31.0-37.0) g/dL Lymphocytes # 0.9 L (1.0-4.8) k/uL Chloride 115 H (98-107) mmol/L Carbon Dioxide 21 L (22-30) mmol/L BUN 33 H (9-20) mg/dL Creatinine 2.26 H (0.66-1.25) mg/dL Glucose 270 H (74-99) mg/dL POC Glucose (mg/dL) 251 H (75-99) mg/dL 03/20/17 Range/Units 11:51 RBC (4.30-5.90) m/uL Hgb (13.0-17.5) gm/dL Hct (39.0-53.0) % MCHC (31.0-37.0) g/dL Lymphocytes # (1.0-4.8) k/uL Chloride (98-107) mmol/L Carbon Dioxide (22-30) mmol/L BUN (9-20) mg/dL Creatinine (0.66-1.25) mg/dL Glucose (74-99) mg/dL POC Glucose (mg/dL) 157 H (75-99) mg/dL Assessment and Plan Plan: Assessment: #1. Nonoliguric acute kidney injury mostly prerenal in nature secondary to vomiting and poor oral intake. He was also on diuretics. Creatinine was 3.6 on admission and is improved to 2.26 today. #2. Living related renal allograft from 2013 at [facility]. 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 #4. Acute pancreatitis. #5. Diabetes mellitus. #6. Hypertension with chronic any disease. Uncontrolled. #7. Hypernatremia due to lack off oral water intake. Improved. #8. Metabolic acidosis secondary to acute kidney injury as well as IV fluids. Improved. Plan: Continue D5 half-normal saline to be run at 125 mL an hour. Avoid nephrotoxic agents and hypotensive episodes. Hold diuretics. Await Prograf level. Increase amlodipine to 5 mg daily. Repeat electrolytes in the morning. Maintain Prograf and prednisone at current doses.
[2017-03-20 15:22] VITALS: BP 189/77; PULSE 63; TEMP 98.4
[2017-03-21] MEDS ORDERED: amLODIPine 5 MG TAB PO SCH (09:00)
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
== END 2017-03-20 16:08 | disposition home or self-care (01) | DRG 438 ==
LOC: EC 16:46 → 4MS4W 21:19
PROVIDERS: ADMIT Hospitalist; ATTEND Hospitalist
DX: K85.90 Acute pancreatitis without necrosis or infection, unspecified (principal); J18.9 Pneumonia, unspecified organism; T86.19 Other complication of kidney transplant; E87.0 Hyperosmolality and hypernatremia; E87.2 Acidosis; N17.9 Acute kidney failure, unspecified; N18.4 Chronic kidney disease, stage 4 (severe); E11.22 Type 2 diabetes mellitus with diabetic chronic kidney disease; D64.9 Anemia, unspecified; K29.70 Gastritis, unspecified, without bleeding; E86.0 Dehydration; I12.9 Hypertensive chronic kidney disease with stage 1 through stage 4 chronic kidney disease, or unspecified chronic kidney disease; I25.10 Atherosclerotic heart disease of native coronary artery without angina pectoris; I25.2 Old myocardial infarction; I71.4 Abdominal aortic aneurysm, without rupture; Z94.0 Kidney transplant status; Z94.2 Lung transplant status; Z79.4 Long term (current) use of insulin; Z79.82 Long term (current) use of aspirin; Z79.899 Other long term (current) drug therapy; Z79.52 Long term (current) use of systemic steroids; Z85.118 Personal history of other malignant neoplasm of bronchus and lung; Z85.828 Personal history of other malignant neoplasm of skin; Z87.891 Personal history of nicotine dependence; Z95.5 Presence of coronary angioplasty implant and graft; Z89.9 Acquired absence of limb, unspecified
CPT/HCPCS: 36415; 71020; 74000; 80048; 80053; 80197; 81001; 82150; 83036; 83690; 85025; 85610; 85730; 96361; 96374; 96375; 99285

== ENCOUNTER 2017-03-25 16:13 | Inpatient (IN) | payer MEDICARE ==
[2017-03-25] MEDS ORDERED: ONDANSETRON 4 MG/2 ML VIAL IVP STA (17:17)
[2017-03-25] MEDS ORDERED: HYDROmorphone 1 MG/ML 1 ML SYRINGE IVP STA (17:18)
[2017-03-25 17:46] LABS: Calcium 9.8 mg/dL (8.4-10.2); Potassium 5.2 mmol/L (3.5-5.1); Total Bilirubin 0.6 mg/dL (0.2-1.3); Total Protein 7.2 g/dL (6.3-8.2)
[2017-03-25 17:59] LABS: Basophils % (A) 0 %; CH 29.6; CHCM 33.4; Eosinophils % (A) 0 %; HCT 40.4 % (39.0-53.0); Luc % (Auto) 1; Lymphocytes # (A) 1.2 k/uL (1.0-4.8); Lymphocytes % (A) 13 %; MCH 28.6 pg (25.0-35.0); MCHC 32.1 g/dL (31.0-37.0); Mean Platelet Volume 7.1; Monocytes # (A) 0.4 k/uL (0-1.0); Monocytes % (A) 5 %; Neutrophils # (A) 7.2 k/uL (1.3-7.7); Neutrophils % (A) 81 %; RBC 4.54 m/uL (4.30-5.90); RDW 14.8 % (11.5-15.5); WBC 8.9 k/uL (3.8-10.6); WBC (Perox) 8.62
--- NOTE | 2017-03-25 18:10 | XR ---
EXAMINATION TYPE: XR KUB DATE OF EXAM: 03/25/2017 5:47 PM CLINICAL HISTORY: Abdominal pain and pancreatitis. TECHNIQUE: 2 upright KUB images of the abdomen are obtained. COMPARISON: Abdominal x-ray from 8 days ago. FINDINGS: There is some paucity of bowel gas visualized gas is seen in nondistended small and large b owel loops. Cholecystectomy clips are present. Vascular calcification overlies the abdomen and pelvis . There is cardiomegaly. Numerous clips overlie the lower chest. Osseous structures are demineralized . IMPRESSION: Overall nonspecific but favor nonobstructive bowel gas pattern.
--- NOTE | 2017-03-25 18:11 | ED ---
General Adult HPI - General Chief complaint: Abdominal Pain Stated complaint: Abd Pain, Vomiting Time Seen by Provider: 03/25/17 16:24 Source: patient, family, RN notes reviewed, old records reviewed Mode of arrival: ambulatory Limitations: no limitations - History of Present Illness Initial comments: Chief complaint and history of present illness this 76-year-old male who was in hospital up until proximal one week ago. At that time he had nausea vomiting and chronic epigastric pain. Since going home use again developed nausea vomiting epigastric pain and diarrhea. - Related Data Home Medications Medication Instructions Recorded Confirmed Aspirin 81 mg PO DAILY 08/06/15 03/25/17 Insulin Detemir [Levemir] See Protocol SQ HS 08/06/15 03/25/17 predniSONE 5 mg PO DAILY 08/06/15 03/25/17 Metoprolol Succinate [Toprol XL] 100 mg PO DAILY 08/07/15 03/25/17 Tacrolimus 1 mg PO BID 08/07/15 03/25/17 Tacrolimus 5 mg PO BID 08/07/15 03/25/17 Pravastatin Sodium [Pravachol] 40 mg PO DAILY 03/17/17 03/25/17 Insulin Aspart [NovoLOG] See Protocol SQ AC-TID 03/25/17 03/25/17 Previous Rx's Medication Instructions Recorded Doxycycline Hyclate 100 mg PO BID 6 Days 03/20/17 amLODIPine [Norvasc] 5 mg PO DAILY #30 tab 03/20/17 Allergies Allergy/AdvReac Type Severity Reaction Status Date / Time No Known Allergies Allergy Verified 03/25/17 16:28 Review of Systems ROS Statement: Those systems with pertinent positive or pertinent negative responses have been documented in the HPI. Review of systems patient denies any headache or visual acuity changes no chest pain or shortness of breath he has epigastric discomfort. Nausea vomiting not eating. Also diarrhea. No neuro deficits. All systems are reviewed. Past medical problems significant for cancer on his left cheek which may have repeat turned. He has insulin-dependent diabetes, hypertension, previous NH, chronic renal disease. History of lung cancer with bilateral lung transplants, also a transplanted kidney. History of abdominal aortic aneurysm. Surgeries as noted above a by lobe lung transplant, kidney transplant from his daughter. Is also had appendectomy, cholecystectomy, heart catheterization with 8 stents, he has a left below-knee amputation. He's had tonsillectomy. Is no longer on dialysis. The patient's family history significant for father had skin and jaw and liver cancer. Patient denies any ALLERGIES. He quit smoking 24 years ago denies alcohol use ROS Other: All systems not noted in ROS Statement are negative. Past Medical History Past Medical History: Cancer, Diabetes Mellitus, Hypertension, Myocardial Infarction ([place]), Renal Disease Additional Past Medical History / Comment(s): lung ca with jayesh lung transplant 2009, right kidney transplant 2013. AAA, PERITONITIS, panceratitis Last Myocardial Infarction Date:: 2013 History of Any Multi-Drug Resistant Organisms: None Reported Past Surgical History: Appendectomy, Cholecystectomy, Heart Catheterization With Stent, Orthopedic Surgery, Tonsillectomy Additional Past Surgical History / Comment(s): dialysis catheter removed 2013, left bka, facial surgery for cancer removal Past Anesthesia/Blood Transfusion Reactions: No Reported Reaction Additional Past Anesthesia/Blood Transfusion Reaction / Comment(s): HX BLOOD TRANSFUSION WITHOUT COMPLICATIONS Date of Last Stent Placement:: Past Psychological History: No Psychological Hx Reported Smoking Status: Never smoker Past Alcohol Use History: None Reported Additional Past Alcohol Use History / Comment(s): STARTED SMOKING AT AGE 20 SMOKED 1 PPD, QUIT IN 1991 Past Drug Use History: None Reported - Past Family History Father Additional Family Medical History / Comment(s): OF CANCER AT AGE 83 STARTED IN [place] HAD METS TO LIVER Mother Additional Family Medical History / Comment(s): FROM EMPHYSEMA AT AGE 80 General Exam - General Exam Comments Initial Comments: General: The patient is awake and alert, complaining of similar problems that he had while he was hospitalized last week. Nausea vomiting epigastric discomfort diarrhea. Hard to keep fluids in. Feels dehydrated. Vital signs shows temperature 98.4 pulse 80 for rate 20 pulse ox 96% on room air blood pressure 130/66 Eye: Pupils are equal, round and reactive to light, extra-ocular movements are intact ; there is normal conjunctiva bilaterally. No signs of icterus. 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 Neck: The neck is supple, no complaint of neck pain. Cardiovascular: There is a regular rate and rhythm. No murmur, rub or gallop is appreciated. Respiratory: Lungs are clear to auscultation, respirations are non-labored, breath sounds are equal. No wheezes, stridor, rales, or rhonchi. Gastrointestinal: Nausea no vomiting, mild epigastric discomfort with palpation.. Mild guarding with deep palpation.. No CVA tenderness. Bowel sounds active. No bruit appreciated area and history of AAA Back: There is no tenderness to palpation in the midline. There is no obvious deformity. No rashes noted. Musculoskeletal: Normal ROM, no tenderness, There is no pedal edema. There is no calf tenderness or swelling. Left BKA Neurological: CN II-XII intact, There are no obvious motor or sensory deficits. Coordination appears grossly intact. Speech is normal. Skin: Skin is warm and dry and no rashes or lesions are noted. Limitations: no limitations Course Vital Signs 03/25/17 03/25/17 03/25/17 16:15 17:35 18:52 Temperature 98.4 F 97.0 F L Pulse Rate 80 61 59 L Respiratory 20 18 18 Rate Blood Pressure 136/66 138/67 130/61 O2 Sat by Pulse 96 95 95 Oximetry Medical Decision Making - Medical Decision Making Vital decision making; the patient's sodium is 147 BUN 54 creatinine 3.26 and GFR of 19 this is worse today than it was 5 days ago. Sodium is 147. He does have chronic renal failure this is acute on chronic renal failure. Urine is clean no signs of infection amylase lipase today are within normal limits. X- ray of the abdomen was done reviewed and compared to previous x-ray radiologist' s impression is overall a nonspecific but favor nonobstructive bowel gas pattern as read by Dr. garcia. The patient will receive fluids at his been having vomiting and diarrhea with acute on chronic renal failure. Patient does have a transplanted kidney for the past 3 years. Patient be admitted to Dr. perdomo does not - Lab Data Result diagrams: 03/25/17 17:29 03/25/17 17:29 Lab Results 03/25/17 03/25/17 03/25/17 Range/Units 17: 17: 18:30 WBC 8.9 (3.8-10.6) k/uL RBC 4.54 (4.30-5.90) m/uL Hgb 13.0 D (13.0-17.5) gm/dL Hct 40.4 (39.0-53.0) % MCV 89.0 (80.0-100.0) fL MCH 28.6 (25.0-35.0) pg MCHC 32.1 (31.0-37.0) g/dL RDW 14.8 (11.5-15.5) % Plt Count 231 (150-450) k/uL Neutrophils % 81 % Lymphocytes % 13 % Monocytes % 5 % Eosinophils % 0 % Basophils % 0 % Neutrophils # 7.2 (1.3-7.7) k/uL Lymphocytes # 1.2 (1.0-4.8) k/uL Monocytes # 0.4 (0-1.0) k/uL Eosinophils # 0.0 (0-0.7) k/uL Basophils # 0.0 (0-0.2) k/uL Sodium 147 H (137-145) mmol/L Potassium 5.2 H (3.5-5.1) mmol/L Chloride 110 H (98-107) mmol/L Carbon Dioxide 19 L (22-30) mmol/L Anion Gap 18 mmol/L BUN 54 H (9-20) mg/dL Creatinine 3.26 H (0.66-1.25) mg/dL Est GFR (MDRD) Af Amer 23 (>60 ml/min/1.73 sqM) Est GFR (MDRD) Non-Af 19 (>60 ml/min/1.73 sqM) Glucose 209 H (74-99) mg/dL Calcium 9.8 (8.4-10.2) mg/dL Total Bilirubin 0.6 (0.2-1.3) mg/dL AST 12 L (17-59) U/L ALT 24 (21-72) U/L Alkaline Phosphatase 98 (38-126) U/L Total Protein 7.2 (6.3-8.2) g/dL Albumin 4.2 (3.5-5.0) g/dL Amylase 49 (30-110) U/L Lipase 68 (23-300) U/L Urine Color Yellow Urine Appearance Clear (Clear) Urine pH 5.0 (5.0-8.0) Ur Specific [place] 1.011 (1.001-1.035) Urine Protein Trace H (Negative) Urine Glucose (UA) 1+ H (Negative) Urine Ketones 1+ H (Negative) Urine Blood Negative (Negative) Urine Nitrite Negative (Negative) Urine Bilirubin Negative (Negative) Urine Urobilinogen <2.0 (<2.0) mg/dL Ur Leukocyte Esterase Negative (Negative) Disposition Clinical Impression: [id number] renal failure Disposition: ADMITTED IP TO THIS HOSP Condition: Serious
[2017-03-25] MEDS ORDERED: METOCLOPRAMIDE 5 MG/ML 2 ML VIAL IVP STA (18:40)
[2017-03-25 18:44] LABS: Appearance,Urine Clear (Clear); Bilirubin,Urine Negative (Negative); Glucose,Urine (UA) 1+ (Negative); Ketones,Urine 1+ (Negative); Leukocyte Esterase,Urine Negative (Negative); Nitrite,Urine Negative (Negative); Protein,Urine Trace (Negative); Specific Gravity,Urine 1.011 (1.001-1.035); UA Billing (MACRO vs. MICRO) CHEM; Urobilinogen,Urine <2.0 mg/dL (<2.0)
[2017-03-25] MEDS ORDERED: SODIUM CHLORIDE 0.9% 500 ML IV ONE (19:00)
[2017-03-25] MEDS ORDERED: NALOXONE 0.4 MG/ML 1 ML VIAL IV PRN (19:00)
[2017-03-25] MEDS ORDERED: ONDANSETRON 4 MG/2 ML VIAL IVP PRN (19:00)
[2017-03-25] MEDS ORDERED: METOCLOPRAMIDE 5 MG/ML 2 ML VIAL IVP PRN (19:06)
[2017-03-25 20:26] LABS: Glucose,Whole Blood 183 mg/dL (75-99)
[2017-03-25] MEDS: FAMOTIDINE 20 MG TAB PO SCH (21:49)
[2017-03-25] MEDS: TACROLIMUS 1 MG CAP PO SCH ×2 (21:49)
[2017-03-25 22:19] VITALS: BMI 27.9
[2017-03-25] MEDS ORDERED: HYDROmorphone 1 MG/ML 1 ML SYRINGE IVP PRN (22:30)
[2017-03-26 08:20] LABS: Calcium 9.1 mg/dL (8.4-10.2); Potassium 4.6 mmol/L (3.5-5.1); Total Bilirubin 0.5 mg/dL (0.2-1.3); Total Protein 6.6 g/dL (6.3-8.2)
[2017-03-26] MEDS: ASPIRIN 81 MG CHEW PO SCH (08:33)
[2017-03-26] MEDS: amLODIPine 5 MG TAB PO SCH (08:33)
[2017-03-26] MEDS: TACROLIMUS 1 MG CAP PO SCH ×3 (08:34→19:55)
[2017-03-26] MEDS: METOPROLOL SUCCINATE (ER) 100 MG TAB.ER.24H PO SCH (08:34)
[2017-03-26] MEDS: PRAVASTATIN SODIUM 40 MG TAB PO SCH (08:34)
[2017-03-26] MEDS: INSULIN LISPRO (humaLOG) 300 UNIT/3 ML VIAL SQ SCH ×4 (08:41→22:23)
[2017-03-26] MEDS: FAMOTIDINE 20 MG TAB PO SCH (10:53)
--- NOTE | 2017-03-26 11:51 | HP ---
DATE OF ADMISSION: CHIEF COMPLAINT: A 76-year-old white male with abdominal pain, nausea, vomiting, acute on chronic renal insufficiency. CHIEF COMPLAINT: A 76-year-old white male came in the hospital due to having nausea, vomiting chronic epigastric and nausea, vomiting, pain for the past week. He was found to have acute on chronic renal insufficiency. No chest pain. HOME MEDICATIONS: 1. NovoLog a.c. t.i.d. 2. Pravachol 40 daily. 3. Tacrolimus 5 mg b.i.d. and 1 mg b.i.d. 4. Metoprolol succinate 100 daily. 5. Levemir protocol. 6. Aspirin 81 mg daily. ALLERGIES: Negative. REVIEW OF SYSTEMS: He has had a lobe lung transplant and kidney transplant from his daughter, appendectomy, cholecystectomy, heart catheterization and stents. Left [id number] amputation, tonsillectomy, no longer on dialysis. FAMILY HISTORY: His father had skin and liver cancer. No known drug allergies. He quit smoking 24 years ago. OPHTHALMOLOGIC: Negative. ENT: Negative. VASCULAR: Negative. He has never smoked. No alcohol. Quit smoking in 1991. Father at age 83, cancer with metastasis to the liver. Mother of emphysema at age 80. Blood pressure 130s/60s. Temperature 98.4. Pulse 80. OPHTHALMOLOGIC: Pupils equal, round and reactive to light and accommodation. NEUROLOGIC: Alert and oriented x3. PSYCHIATRIC: Fair mood and affect. VASCULAR: Normal dorsalis pedis, posterior tibial pulse. INTEGUMENT: His left cheek papules pustules, quarter size, erythema and scaliness. LUNGS: Clear. : No suprapubic tenderness. Cranial nerves are intact. BUN 54, creatinine 3.26. Nonobstructive bowel gas pattern on x-ray. ASSESSMENT: 1. Acute on chronic renal failure. 2. Acute abdominal pain with diarrhea and progressive emesis. 3. Hyperkalemia. 4. Hypernatremia. PLAN: Continue with current treatments. IV fluid rehydration. Surgical consultation and renal consultation. Home medications will be given. Please see further orders.
--- NOTE | 2017-03-26 12:09 | P.NPCON ---
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 So far workup has shown a negative C. diff. He was recently admitted on 03/17/2017 to 03/20/2017 with nausea vomiting pancreatitis. He recovered went home and a day later was also started her nausea vomiting and diarrhea. Last admission he had a lot of abdominal pain that has not recurred. No GI bleeding, no hemoptysis hematemesis or melena. No fever chills dysuria frequency. His loss about 15 pounds over the last 10 days approximately. 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 He is diabetic since the transplant likely from immunosuppressive medications. 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 Past Medical History Past Medical History: Cancer, Diabetes Mellitus, Hypertension, Myocardial Infarction ([place]), Renal Disease Additional Past Medical History / Comment(s): lung ca with jayesh lung transplant 2009, right kidney transplant 2013. AAA, PERITONITIS, panceratitis Last Myocardial Infarction Date:: 2013 History of Any Multi-Drug Resistant Organisms: None Reported Past Surgical History: Appendectomy, Cholecystectomy, Heart Catheterization With Stent, Orthopedic Surgery, Tonsillectomy Additional Past Surgical History / Comment(s): dialysis catheter removed 2013, left bka, facial surgery for cancer removal Past Anesthesia/Blood Transfusion Reactions: No Reported Reaction Additional Past Anesthesia/Blood Transfusion Reaction / Comment(s): HX BLOOD TRANSFUSION WITHOUT COMPLICATIONS Date of Last Stent Placement:: 2-2012 Past Psychological History: No Psychological Hx Reported Smoking Status: Former smoker Past Alcohol Use History: None Reported Additional Past Alcohol Use History / Comment(s): STARTED SMOKING AT AGE 20 SMOKED 1 PPD, QUIT IN 1991 Past Drug Use History: None Reported - Past Family History Father Additional Family Medical History / Comment(s): OF CANCER AT AGE 83 STARTED IN [place] HAD METS TO LIVER Mother Additional Family Medical History / Comment(s): FROM EMPHYSEMA AT AGE 80 Medications and Allergies Home Medications Medication Instructions Recorded Confirmed Type Aspirin 81 mg PO DAILY 08/06/15 03/25/17 History Insulin Detemir [Levemir] See Protocol SQ HS 08/06/15 03/25/17 History predniSONE 5 mg PO DAILY 08/06/15 03/25/17 History Metoprolol Succinate [Toprol XL] 100 mg PO DAILY 08/07/15 03/25/17 History Tacrolimus 1 mg PO BID 08/07/15 03/25/17 History Tacrolimus 5 mg PO BID 08/07/15 03/25/17 History Pravastatin Sodium [Pravachol] 40 mg PO DAILY 03/17/17 03/25/17 History Insulin Aspart [NovoLOG] See Protocol SQ AC-TID 03/25/17 03/25/17 History Allergies Allergy/AdvReac Type Severity Reaction Status Date / Time No Known Allergies Allergy Verified 03/25/17 16:28 Physical Exam Vitals: Vital Signs Temp Pulse Resp BP Pulse Ox 03/26/17 07:00 96.9 F L 61 16 139/65 100 03/25/17 22:28 97.5 F L 59 L 16 124/63 100 03/25/17 20:17 97.4 F L 59 L 16 165/83 100 Intake and Output 03/25/17 03/26/17 03/26/17 22:59 06:59 14:59 Intake Total 500 Output Total 300 Balance 500 -300 Intake: Intake, IV Titration 500 Amount Sodium Chloride 0.9% 500 500 ml @ 999 mls/hr IV .Q31M ONE Rx#:[id number] Output: Urine 300 Other: Voiding Method Toilet # Voids 1 1 Weight 73.936 kg on examination he is awake alert oriented. HEENT exam no JVP lymphadenopathy thyromegaly neck is supple no facial asymmetry Oral cavity is unremarkable. Lungs are clear to auscultation percussion good air entry bilaterally Heart sounds are unremarkable for any murmur rub gallop. Abdomen soft nontender no organomegaly status masses or sounds are present Extremity exam was left BKA from a accident with the work. No edema noted in the right. Neurologically awake alert oriented comfortable. Results - Lab Results Most recent lab results Calcium 9.1 mg/dL (8.4-10.2) 03/26/17 07:25 03/25/17 17:29 03/26/17 07:25 Assessment and Plan Plan: impression. 1. Living-related allograft from daughter 2014, etiology of ESRD was immunosuppressive medications for lung transplant, baseline creatinine is 2.7. 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 2. History of bilateral lung transplant 2009 for COPD, immunosuppressive medication regimen includes high-dose Prograf at 6 mg twice a day, last Prograf level was 15 dated 03/17/2017. 3. Recent admission 03/17/2017 2 to 03/20/2017 for nausea vomiting pancreatitis. Recurrence of nausea vomiting diarrhea.C. diff negative. Rule out CMV. Also will nephrotoxicity and diarrhea from high Prograf level Prograf level was 15 dated 03/17/2017 4. nausea vomiting diarrhea,Rule out CMV disease.lipase is 68 and amylase is 49 normal AST AST 5. Mild degree of hypernatremia secondary to chronic kidney disease and free water deficit. 6. Mild degree of hyperkalemia secondary to acute kidney injury and CK D. 7. Mild degree of gap acidosis with bicarb 19 and a gap of 18 secondary to his chronic kidney disease and acute kidney injury. Recommendation. Continue IV normal saline at 100 and hour. Check CMV PCR. will have to coordinate with the lung transplant Department at [facility] regarding his Prograf level and adjust dosing as needed. From a nephrological perspective the level of 15 and is high start sodium bicarb 650 3 times a day. Monitor urine output blood pressure orthostatic changes
[2017-03-26 12:46] LABS: Glucose,Whole Blood 125 mg/dL (75-99)
[2017-03-26 12:46] LABS: Magnesium 1.6 mg/dL (1.6-2.3); Phosphorous 4.2 mg/dL (2.5-4.5)
[2017-03-26] MEDS: SODIUM BICARBONATE TAB 650 MG TAB PO SCH ×3 (12:56→22:23)
[2017-03-26 17:03] LABS: Glucose,Whole Blood 175 mg/dL (75-99)
[2017-03-26] MEDS: SODIUM CHLORIDE 0.9% 1,000 ML IV SCH (19:57)
[2017-03-26 21:39] LABS: Glucose,Whole Blood 158 mg/dL (75-99)
[2017-03-26 22:40] VITALS: RESP 16
[2017-03-27] MEDS: SODIUM CHLORIDE 0.9% 1,000 ML IV SCH ×3 (01:52→18:14)
[2017-03-27 06:19] LABS: Basophils % (A) 1 %; CHCM 32.1; Eosinophils # (A) 0.1 k/uL (0-0.7); Eosinophils % (A) 2 %; HCT 33.8 % (39.0-53.0); HDW 3.22; HGB 10.9 gm/dL (13.0-17.5); Hypochromasia Slight; Luc # (Auto) 0.06; Luc % (Auto) 1; Lymphocytes # (A) 1.2 k/uL (1.0-4.8); Lymphocytes % (A) 22 %; MCH 29.3 pg (25.0-35.0); MCHC 32.2 g/dL (31.0-37.0); Monocytes # (A) 0.4 k/uL (0-1.0); Monocytes % (A) 7 %; Neutrophils # (A) 3.7 k/uL (1.3-7.7); Neutrophils % (A) 68 %; RBC 3.71 m/uL (4.30-5.90); RDW 14.9 % (11.5-15.5); WBC 5.5 k/uL (3.8-10.6); WBC (Perox) 5.94
[2017-03-27 06:41] LABS: Calcium 8.6 mg/dL (8.4-10.2); Potassium 4.5 mmol/L (3.5-5.1); Total Bilirubin 0.4 mg/dL (0.2-1.3); Total Protein 5.4 g/dL (6.3-8.2)
[2017-03-27 07:29] LABS: Glucose,Whole Blood 149 mg/dL (75-99)
[2017-03-27 08:04] VITALS: TEMP 97.9
[2017-03-27] MEDS: INSULIN LISPRO (humaLOG) 300 UNIT/3 ML VIAL SQ SCH ×3 (08:23→18:12)
[2017-03-27] MEDS: ASPIRIN 81 MG CHEW PO SCH (08:25)
[2017-03-27] MEDS: METOPROLOL SUCCINATE (ER) 100 MG TAB.ER.24H PO SCH (08:29)
[2017-03-27] MEDS: SODIUM BICARBONATE TAB 650 MG TAB PO SCH ×3 (08:29→18:13)
[2017-03-27] MEDS: PRAVASTATIN SODIUM 40 MG TAB PO SCH (08:29)
[2017-03-27] MEDS: amLODIPine 5 MG TAB PO SCH (08:29)
[2017-03-27] MEDS: TACROLIMUS 1 MG CAP PO SCH (08:30)
[2017-03-27] MEDS ORDERED: FAMOTIDINE 20 MG TAB PO SCH (09:00)
[2017-03-27 11:45] LABS: Glucose,Whole Blood 168 mg/dL (75-99)
[2017-03-27] MEDS ORDERED: SODIUM CHLORIDE 0.45% 1,000 ML IV SCH (13:15)
--- NOTE | 2017-03-27 13:42 | P.GSCN ---
History of Present Illness Consult date: 03/26/17 Reason for Consult: Diarrhea, emesis, abdominal pain Requesting physician: Danilo Benedict History of present illness: Patient is a 76-year-old white male, referred from Dr. Benedict, with medical history significant for pancreatitis. Surgical history significant for appendectomy and cholecystectomy. Patient presented to the emergency department with complaints of nausea, vomiting, diarrhea, and chronic epigastric pain. Patient was just hospitalized for acute pancreatitis last week which resolved and patient was discharged home on 03/20/2017. Patient returns this time with similar symptoms with evidence of dehydration but no evidence of pancreatitis. No history of hematemesis, melena, hematochezia. No history of fevers or chills. KUB with overall nonobstructive bowel pattern. Upon examination, patient denies nausea, vomiting, abdominal pain, diarrhea, constipation. Patient is tolerating a regular diet. Patient states he had a formed bowel movement this morning. Afebrile. Acute kidney injury improving. C. difficile negative. Past Medical History Past Medical History: Cancer, Diabetes Mellitus, Hypertension, Myocardial Infarction ([place]), Renal Disease Additional Past Medical History / Comment(s): lung ca with jayesh lung transplant 2009, right kidney transplant 2013. AAA, PERITONITIS, panceratitis Last Myocardial Infarction Date:: 2013 History of Any Multi-Drug Resistant Organisms: None Reported Past Surgical History: Appendectomy, Cholecystectomy, Heart Catheterization With Stent, Orthopedic Surgery, Tonsillectomy Additional Past Surgical History / Comment(s): dialysis catheter removed 2013, left bka, facial surgery for cancer removal Past Anesthesia/Blood Transfusion Reactions: No Reported Reaction Additional Past Anesthesia/Blood Transfusion Reaction / Comm: HX BLOOD TRANSFUSION WITHOUT COMPLICATIONS Date of Last Stent Placement:: 2-2012 Past Psychological History: No Psychological Hx Reported Smoking Status: Former smoker Past Alcohol Use History: None Reported Additional Past Alcohol Use History / Comment(s): STARTED SMOKING AT AGE 20 SMOKED 1 PPD, QUIT IN 1991 Past Drug Use History: None Reported - Past Family History Father Additional Family Medical History / Comment(s): OF CANCER AT AGE 83 STARTED IN [place] HAD METS TO LIVER Mother Additional Family Medical History / Comment(s): FROM EMPHYSEMA AT AGE 80 Medications and Allergies Home Medications Medication Instructions Recorded Confirmed Type Aspirin 81 mg PO DAILY 08/06/15 03/25/17 History Insulin Detemir [Levemir] See Protocol SQ HS 08/06/15 03/25/17 History predniSONE 5 mg PO DAILY 08/06/15 03/25/17 History Metoprolol Succinate [Toprol XL] 100 mg PO DAILY 08/07/15 03/25/17 History Tacrolimus 1 mg PO BID 08/07/15 03/25/17 History Tacrolimus 5 mg PO BID 08/07/15 03/25/17 History Pravastatin Sodium [Pravachol] 40 mg PO DAILY 03/17/17 03/25/17 History Insulin Aspart [NovoLOG] See Protocol SQ AC-TID 03/25/17 03/25/17 History Allergies Allergy/AdvReac Type Severity Reaction Status Date / Time No Known Allergies Allergy Verified 03/25/17 16:28 Surgical - Exam Vital Signs Temp Pulse Resp BP Pulse Ox 98.4 F 80 20 136/66 96 03/25/17 16:15 03/25/17 16:15 03/25/17 16:15 03/25/17 16:15 03/25/17 16:15 GENERAL: Pt awake and alert, well-appearing, well-nourished, and in no acute distress. EYES: Pupils equal, round, sclera anicteric, conjunctiva are normal. ENT: Moist mucous membranes. LUNGS: Breath sounds clear to auscultation bilaterally. No wheezes, rales, or rhonchi. HEART: Heart S1, S2, no S3 or S4. Regular rate and rhythm. No murmurs, rubs or gallops. ABDOMEN: Soft, nontender, nondistended, normoactive bowel sounds. No guarding, no rebound. No masses or organomegaly appreciated. EXTREMITIES: 2+ peripheral pulses. No edema, clubbing or cyanosis. No calf tenderness. NEUROLOGICAL: Pt oriented x 3. Results - Labs 03/27/17 05:58 03/27/17 05:58 Abnormal Lab Results - Last 24 Hours (Table) 03/26/17 03/26/17 03/27/17 Range/Units 17:01 21:38 05:58 RBC 3.71 L (4.30-5.90) m/uL Hgb 10.9 L (13.0-17.5) gm/dL Hct 33.8 L (39.0-53.0) % Plt Count 146 L (150-450) k/uL Sodium (137-145) mmol/L Chloride (98-107) mmol/L Carbon Dioxide (22-30) mmol/L BUN (9-20) mg/dL Creatinine (0.66-1.25) mg/dL Glucose (74-99) mg/dL POC Glucose (mg/dL) 175 H 158 H (75-99) mg/dL AST (17-59) U/L ALT (21-72) U/L Total Protein (6.3-8.2) g/dL Albumin (3.5-5.0) g/dL 03/27/17 03/27/17 03/27/17 Range/Units 05:58 07:26 11:35 RBC (4.30-5.90) m/uL Hgb (13.0-17.5) gm/dL Hct (39.0-53.0) % Plt Count (150-450) k/uL Sodium 148 H (137-145) mmol/L Chloride 120 H* (98-107) mmol/L Carbon Dioxide 17 L (22-30) mmol/L BUN 42 H (9-20) mg/dL Creatinine 2.90 H (0.66-1.25) mg/dL Glucose 142 H (74-99) mg/dL POC Glucose (mg/dL) 149 H 168 H (75-99) mg/dL AST 8 L (17-59) U/L ALT 20 L (21-72) U/L Total Protein 5.4 L (6.3-8.2) g/dL Albumin 3.0 L (3.5-5.0) g/dL Microbiology - Last 24 Hours (Table) 03/26/17 13:01 Stool Culture - Preliminary Stool Diabetes panel 03/27/17 Range/Units 05:58 Sodium 148 H (137-145) mmol/L Potassium 4.5 (3.5-5.1) mmol/L Chloride 120 H* (98-107) mmol/L Carbon Dioxide 17 L (22-30) mmol/L BUN 42 H (9-20) mg/dL Creatinine 2.90 H (0.66-1.25) mg/dL Glucose 142 H (74-99) mg/dL Calcium 8.6 (8.4-10.2) mg/dL AST 8 L (17-59) U/L ALT 20 L (21-72) U/L Alkaline Phosphatase 74 (38-126) U/L Total Protein 5.4 L (6.3-8.2) g/dL Albumin 3.0 L (3.5-5.0) g/dL Calcium panel 03/27/17 Range/Units 05:58 Calcium 8.6 (8.4-10.2) mg/dL Albumin 3.0 L (3.5-5.0) g/dL Pituitary panel 03/27/17 Range/Units 05:58 Sodium 148 H (137-145) mmol/L Potassium 4.5 (3.5-5.1) mmol/L Chloride 120 H* (98-107) mmol/L Carbon Dioxide 17 L (22-30) mmol/L BUN 42 H (9-20) mg/dL Creatinine 2.90 H (0.66-1.25) mg/dL Glucose 142 H (74-99) mg/dL Calcium 8.6 (8.4-10.2) mg/dL Adrenal panel 03/27/17 Range/Units 05:58 Sodium 148 H (137-145) mmol/L Potassium 4.5 (3.5-5.1) mmol/L Chloride 120 H* (98-107) mmol/L Carbon Dioxide 17 L (22-30) mmol/L BUN 42 H (9-20) mg/dL Creatinine 2.90 H (0.66-1.25) mg/dL Glucose 142 H (74-99) mg/dL Calcium 8.6 (8.4-10.2) mg/dL Total Bilirubin 0.4 (0.2-1.3) mg/dL AST 8 L (17-59) U/L ALT 20 L (21-72) U/L Alkaline Phosphatase 74 (38-126) U/L Total Protein 5.4 L (6.3-8.2) g/dL Albumin 3.0 L (3.5-5.0) g/dL - Imaging Abdominal x-ray: report reviewed Assessment and Plan Plan: Impression: 1. Nausea, vomiting, and diarrhea, present on admission, resolved. Abdominal x -ray with evidence of nonobstructive bowel gas pattern. C. difficile negative. 2. History of recent acute pancreatitis, etiology unclear. 3. Acute on chronic renal failure. Plan: 1. CMV PCR has been ordered, results pending. Stool culture results pending. Continue IV hydration. Continue current diet. Continue supportive treatment and pain management. Continue to follow with medical and nephrology service. Repeat BMP in a.m. The above impression and plan have been discussed and directed by Dr. Meyer. Lindsay SARABIA acting as scribe for Dr. Meyer.
--- NOTE | 2017-03-27 13:49 | PN ---
Patient is seen for followup for posttransplant care and acute kidney injury. He was admitted to the hospital with nausea and vomiting which seems to have resolved now. He had a prior to admission with pancreatitis. He states he has been eating well now with no complaints of nausea, vomiting, abdominal pain or diarrhea. He wants to go home. On examination, blood pressure is 162/71, heart rate 61 per minute. He is afebrile. Examination of the heart S1 and S2. Examination of the lungs, bilateral breath sounds are heard. Abdomen is soft, nontender. Examination of lower extremities shows no evidence of edema. Left BKA is noted. Labs show sodium 148, potassium 4.5, chloride 120, BUN 42, serum creatinine 2.9. Hemoglobin 10.9 g/dL. ASSESSMENT: 1. 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 2. Acute kidney injury, mainly prerenal, currently slightly improved. 3. Status post living relative allograft from daughter 2013. 4. 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 5. Toxic Prograf levels on 03/11/2017, currently with slightly reduced dose. Will recheck levels in about 3 to 4 days' time. Level was at 15 on 03/17/2017. 6. Mild hypernatremia. Will change IV fluids to half-normal saline. PLAN: Patient is stable for discharge from nephrology standpoint. He can go home and repeat Prograf level as outpatient. He has an ENT appointment tomorrow morning at 9:30 which he has missed previously for a lesion on the left side of his face on the cheek area.
[2017-03-27 15:56] VITALS: BP 133/83; PULSE 56
[2017-03-27 17:32] LABS: Glucose,Whole Blood 108 mg/dL (75-99)
[2017-03-27 20:00] LABS: Glucose,Whole Blood 175 mg/dL (75-99)
--- NOTE | 2017-04-01 19:59 | DS ---
DATE OF ADMISSION: 03/25/2017 DATE OF DISCHARGE: 03/27/2017 DISCHARGE MEDICATIONS: 1. Levemir per protocol. 2. Prednisone 5 mg daily. 3. Aspirin 81 mg daily. 4. Tobrex 100 mg daily. 5. Tacrolimus 5 mg b.i.d. and 1 mg b.i.d. 6. Pravastatin 40 daily. 7. Doxycycline 100 mg b.i.d. for 6 days. 8. Amlodipine 5 mg daily. 9. Insulin with meals and at bedtime. 10. Aspirin 81 mg a day. 11. Pravastatin 40 mg daily. 12. Bicarb 650 mg q.i.d. CONDITION: Stable. PROGNOSIS: Guarded. ACTIVITY: Ambulate as tolerated. DISCHARGE DIAGNOSES: 1. Diabetes mellitus. 2. Facial skin cancer. 3. Hypertension. 4. Myocardial infarction. 5. Renal disease. 6. Status post lung transplant. 7. Status post kidney transplant. 8. Status post abdominal aortic aneurysm. 9. Status post peritonitis. 10. Status post pancreatitis. 11. Endstage renal disease. 12. Immunosuppressive medications for lung transplant. 13. Chronic renal insufficiency. 14. Hypernatremia. 15. Hyperkalemia. 16. Mild gap acidosis. FOLLOW UP: Follow up as an outpatient as mentioned above, with his renal physicians that he sees chronically. Abdominal pain with nausea and vomiting are improved. The patient was as stabilized and renal disease was improved with IV fluids. His abdominal pain decreased. He was sent home in stable condition. He will follow up as an outpatient.
== END 2017-03-27 20:38 | disposition home or self-care (01) | DRG 683 ==
LOC: EC 16:13 → 5MS5E 19:00
PROVIDERS: ADMIT Family Medicine; ATTEND Family Medicine
DX: N17.9 Acute kidney failure, unspecified (principal); E87.0 Hyperosmolality and hypernatremia; E87.2 Acidosis; I12.0 Hypertensive chronic kidney disease with stage 5 chronic kidney disease or end stage renal disease; E11.22 Type 2 diabetes mellitus with diabetic chronic kidney disease; E87.5 Hyperkalemia; E86.0 Dehydration; I25.10 Atherosclerotic heart disease of native coronary artery without angina pectoris; I25.2 Old myocardial infarction; I71.4 Abdominal aortic aneurysm, without rupture; J44.9 Chronic obstructive pulmonary disease, unspecified; R19.7 Diarrhea, unspecified; N18.9 Chronic kidney disease, unspecified; G89.29 Other chronic pain; R10.13 Epigastric pain; Z94.2 Lung transplant status; Z94.0 Kidney transplant status; Z79.82 Long term (current) use of aspirin; Z79.899 Other long term (current) drug therapy; Z79.4 Long term (current) use of insulin; Z79.52 Long term (current) use of systemic steroids; Z85.118 Personal history of other malignant neoplasm of bronchus and lung; Z87.891 Personal history of nicotine dependence; Z89.512 Acquired absence of left leg below knee
CPT/HCPCS: 36415; 74000; 80053; 80197; 81003; 82150; 83690; 83735; 84100; 85025; 87045; 87046; 87086; 87324; 87497; 96374; 96375; 96376; 99285

== ENCOUNTER 2017-04-07 10:48 | Inpatient (IN) | payer MEDICARE ==
[2017-04-07 11:34] LABS: Basophils % (A) 0 %; CHCM 32.3; Eosinophils # (A) 0.2 k/uL (0-0.7); Eosinophils % (A) 2 %; HDW 3.36; HGB 12.6 gm/dL (13.0-17.5); Hypochromasia Slight; Luc # (Auto) 0.16; Luc % (Auto) 2; Lymphocytes # (A) 1.6 k/uL (1.0-4.8); Lymphocytes % (A) 15 %; MCH 29.2 pg (25.0-35.0); MCHC 32.4 g/dL (31.0-37.0); MCV 90.3 fL (80.0-100.0); Monocytes # (A) 0.5 k/uL (0-1.0); Monocytes % (A) 5 %; Neutrophils # (A) 8.1 k/uL (1.3-7.7); Neutrophils % (A) 76 %; RBC 4.32 m/uL (4.30-5.90); RDW 15.5 % (11.5-15.5); WBC 10.6 k/uL (3.8-10.6); WBC (Perox) 10.92
[2017-04-07 11:42] LABS: INR 1.2 (<1.1); Partial Thromboplastin Time 23.2 sec (22.0-30.0); Prothrombin Time 11.9 sec (9.0-12.0)
--- NOTE | 2017-04-07 11:43 | ED ---
General Adult HPI - General Chief complaint: Weakness Stated complaint: weakness, nausea, facial abscess Time Seen by Provider: 04/07/17 10:59 Source: patient, RN notes reviewed, old records reviewed Mode of arrival: wheelchair Limitations: no limitations - History of Present Illness Initial comments: This is a 76-year-old male ER for evaluation prior in by family for evaluation of nausea vomiting. Anorexia decreased appetite and weight loss. Patient is complex medical history with multiple transplant. Patient is unable to keep food down at this time. His rapidly losing weight without attempting to. No fevers. No diarrhea. No sick contacts or recent travel history. - Related Data Home Medications Medication Instructions Recorded Confirmed Aspirin 81 mg PO DAILY 08/06/15 04/07/17 Insulin Detemir [Levemir] See Protocol SQ ACHS 08/06/15 04/07/17 Tacrolimus 1 mg PO BID 08/07/15 04/07/17 Tacrolimus 5 mg PO BID 08/07/15 04/07/17 Pravastatin Sodium [Pravachol] 40 mg PO DAILY 03/17/17 04/07/17 Diphenoxylate HCl/Atropine 1 tab PO QID PRN 04/07/17 04/07/17 [Lomotil] Hydrochlorothiazide [Hydrodiuril] 12.5 mg PO DAILY 04/07/17 04/07/17 Moxifloxacin HCl [Avelox] 400 mg PO DAILY 04/07/17 04/07/17 Sulfamethox-Tmp 800-160Mg [Bactrim 1 tab PO Q12HR 04/07/17 04/07/17 DS 800-160 mg] amLODIPine [Norvasc] 2.5 mg PO DAILY 04/07/17 04/07/17 predniSONE 5 mg PO DAILY 04/07/17 04/07/17 Previous Rx's Medication Instructions Recorded Metoprolol Succinate (ER) [Toprol 100 mg PO DAILY tab.er.24h 03/27/17 XL] Allergies Allergy/AdvReac Type Severity Reaction Status Date / Time No Known Allergies Allergy Verified 04/07/17 11:42 Review of Systems ROS Statement: Those systems with pertinent positive or pertinent negative responses have been documented in the HPI. ROS Other: All systems not noted in ROS Statement are negative. Past Medical History Past Medical History: Cancer, Diabetes Mellitus, Hypertension, Myocardial Infarction ([place]), Renal Disease Additional Past Medical History / Comment(s): lung ca with jayesh lung transplant 2009, right kidney transplant 2013. AAA, PERITONITIS, panceratitis Last Myocardial Infarction Date:: 2013 History of Any Multi-Drug Resistant Organisms: None Reported Past Surgical History: Appendectomy, Cholecystectomy, Heart Catheterization With Stent, Orthopedic Surgery, Tonsillectomy Additional Past Surgical History / Comment(s): dialysis catheter removed 2013, left bka, facial surgery for cancer removal Past Anesthesia/Blood Transfusion Reactions: No Reported Reaction Additional Past Anesthesia/Blood Transfusion Reaction / Comment(s): HX BLOOD TRANSFUSION WITHOUT COMPLICATIONS Date of Last Stent Placement:: 2-2012 Past Psychological History: No Psychological Hx Reported Smoking Status: Former smoker Past Alcohol Use History: None Reported Additional Past Alcohol Use History / Comment(s): STARTED SMOKING AT AGE 20 SMOKED 1 PPD, QUIT IN 1991 Past Drug Use History: None Reported - Past Family History Father Additional Family Medical History / Comment(s): OF CANCER AT AGE 83 STARTED IN [place] HAD METS TO LIVER Mother Additional Family Medical History / Comment(s): FROM EMPHYSEMA AT AGE 80 General Exam Limitations: no limitations General appearance: alert, in no apparent distress Head exam: Present: atraumatic, normocephalic, normal inspection Eye exam: Present: normal appearance, PERRL, EOMI. Absent: scleral icterus, conjunctival injection, periorbital swelling ENT exam: Present: normal exam, mucous membranes moist Neck exam: Present: normal inspection. Absent: tenderness, meningismus, lymphadenopathy Respiratory exam: Present: normal lung sounds bilaterally. Absent: respiratory distress, wheezes, rales, rhonchi, stridor Cardiovascular Exam: Present: regular rate, normal rhythm, normal heart sounds. Absent: systolic murmur, diastolic murmur, rubs, gallop, clicks GI/Abdominal exam: Present: soft, normal bowel sounds. Absent: distended, tenderness, guarding, rebound, rigid Extremities exam: Present: normal inspection, full ROM, normal capillary refill. Absent: tenderness, pedal edema, joint swelling, calf tenderness Back exam: Present: normal inspection Neurological exam: Present: alert, oriented X3, CN II-XII intact Psychiatric exam: Present: normal affect, normal mood Skin exam: Present: warm, dry, intact, normal color. Absent: rash Course Vital Signs 04/07/17 04/07/17 10:52 11:27 Temperature 97.5 F L Pulse Rate 67 68 Respiratory 18 18 Rate Blood Pressure 118/63 113/58 O2 Sat by Pulse 99 98 Oximetry - Reevaluation(s) Reevaluation #1: 04/07/17 13:22 Patient remains nauseous, not feeling well. 04/07/17 13:23 EKG Findings - EKG Comments: EKG Findings:: EKG shows normal sinus rhythm rate of 67, MT 132, QRS 90, QTC 420 Medical Decision Making - Medical Decision Making 70 formality ER for evaluation weakness, weight loss, tractable nausea and vomiting, dehydration, renal failure. Patient will be admitted for symptomatic management and neuro nephrology evaluation - Lab Data Result diagrams: 04/07/17 11:10 04/07/17 11:10 Lab Results 04/07/17 04/07/17 04/07/17 Range/Units 11:10 11:10 11:10 WBC 10.6 (3.8-10.6) k/uL RBC 4.32 (4.30-5.90) m/uL Hgb 12.6 L (13.0-17.5) gm/dL Hct 39.0 (39.0-53.0) % MCV 90.3 (80.0-100.0) fL MCH 29.2 (25.0-35.0) pg MCHC 32.4 (31.0-37.0) g/dL RDW 15.5 (11.5-15.5) % Plt Count 190 (150-450) k/uL Neutrophils % 76 % Lymphocytes % 15 % Monocytes % 5 % Eosinophils % 2 % Basophils % 0 % Neutrophils # 8.1 H (1.3-7.7) k/uL Lymphocytes # 1.6 (1.0-4.8) k/uL Monocytes # 0.5 (0-1.0) k/uL Eosinophils # 0.2 (0-0.7) k/uL Basophils # 0.0 (0-0.2) k/uL Hypochromasia Slight PT (9.0-12.0) sec INR (<1.1) APTT (22.0-30.0) sec Sodium 142 (137-145) mmol/L Potassium 4.8 (3.5-5.1) mmol/L Chloride 109 H (98-107) mmol/L Carbon Dioxide 20 L (22-30) mmol/L Anion Gap 13 mmol/L BUN 50 H (9-20) mg/dL Creatinine 4.16 H (0.66-1.25) mg/dL Est GFR (MDRD) Af Amer 17 (>60 ml/min/1.73 sqM) Est GFR (MDRD) Non-Af 14 (>60 ml/min/1.73 sqM) Glucose 158 H (74-99) mg/dL Calcium 9.2 (8.4-10.2) mg/dL Total Bilirubin 1.0 (0.2-1.3) mg/dL AST 15 L (17-59) U/L ALT 29 (21-72) U/L Alkaline Phosphatase 103 (38-126) U/L Total Creatine Kinase <20 L (55-170) U/L CK-MB (CK-2) <0.2 (0.0-2.4) ng/mL CK-MB (CK-2) Rel Index Troponin I 0.020 (0.000-0.034) ng/mL Total Protein 6.6 (6.3-8.2) g/dL Albumin 3.7 (3.5-5.0) g/dL Urine Color Urine Appearance (Clear) Urine pH (5.0-8.0) Ur Specific [place] (1.001-1.035) Urine Protein (Negative) Urine Glucose (UA) (Negative) Urine Ketones (Negative) Urine Blood (Negative) Urine Nitrite (Negative) Urine Bilirubin (Negative) Urine Urobilinogen (<2.0) mg/dL Ur Leukocyte Esterase (Negative) Urine WBC (0-5) /hpf Ur Squamous Epith Cells (0-4) /hpf Hyaline Casts (0-2) /lpf Urine Mucus (None) /hpf 04/07/17 04/07/17 Range/Units 11:10 12:30 WBC (3.8-10.6) k/uL RBC (4.30-5.90) m/uL Hgb (13.0-17.5) gm/dL Hct (39.0-53.0) % MCV (80.0-100.0) fL MCH (25.0-35.0) pg MCHC (31.0-37.0) g/dL RDW (11.5-15.5) % Plt Count (150-450) k/uL Neutrophils % % Lymphocytes % % Monocytes % % Eosinophils % % Basophils % % Neutrophils # (1.3-7.7) k/uL Lymphocytes # (1.0-4.8) k/uL Monocytes # (0-1.0) k/uL Eosinophils # (0-0.7) k/uL Basophils # (0-0.2) k/uL Hypochromasia PT 11.9 (9.0-12.0) sec INR 1.2 (<1.1) APTT 23.2 (22.0-30.0) sec Sodium (137-145) mmol/L Potassium (3.5-5.1) mmol/L Chloride (98-107) mmol/L Carbon Dioxide (22-30) mmol/L Anion Gap mmol/L BUN (9-20) mg/dL Creatinine (0.66-1.25) mg/dL Est GFR (MDRD) Af Amer (>60 ml/min/1.73 sqM) Est GFR (MDRD) Non-Af (>60 ml/min/1.73 sqM) Glucose (74-99) mg/dL Calcium (8.4-10.2) mg/dL Total Bilirubin (0.2-1.3) mg/dL AST (17-59) U/L ALT (21-72) U/L Alkaline Phosphatase (38-126) U/L Total Creatine Kinase (55-170) U/L CK-MB (CK-2) (0.0-2.4) ng/mL CK-MB (CK-2) Rel Index Troponin I (0.000-0.034) ng/mL Total Protein (6.3-8.2) g/dL Albumin (3.5-5.0) g/dL Urine Color Yellow Urine Appearance Clear (Clear) Urine pH 5.0 (5.0-8.0) Ur Specific [place] 1.012 (1.001-1.035) Urine Protein 1+ H (Negative) Urine Glucose (UA) Negative (Negative) Urine Ketones Negative (Negative) Urine Blood Negative (Negative) Urine Nitrite Negative (Negative) Urine Bilirubin Negative (Negative) Urine Urobilinogen <2.0 (<2.0) mg/dL Ur Leukocyte Esterase Negative (Negative) Urine WBC 1 (0-5) /hpf Ur Squamous Epith Cells <1 (0-4) /hpf Hyaline Casts 4 H (0-2) /lpf Urine Mucus Rare H (None) /hpf Disposition Clinical Impression: Acute renal insufficiency, History of renal transplant, [id number] renal failure, Weight loss, Intractable nausea and vomiting Disposition: ADMITTED IP TO THIS [facility] Condition: Good Referrals: Kale Urbina MD [Primary Care Provider] - 1-2 days
[2017-04-07 11:45] LABS: Calcium 9.2 mg/dL (8.4-10.2); Potassium 4.8 mmol/L (3.5-5.1); Total Protein 6.6 g/dL (6.3-8.2)
[2017-04-07 12:00] LABS: Creatine Kinase <20 U/L (55-170)
[2017-04-07 12:11] LABS: Creatine Kinase MB <0.2 ng/mL (0.0-2.4)
[2017-04-07 12:52] LABS: Appearance,Urine Clear (Clear); Bilirubin,Urine Negative (Negative); Glucose,Urine (UA) Negative (Negative); Ketones,Urine Negative (Negative); Leukocyte Esterase,Urine Negative (Negative); Mucus,Urine Rare /hpf; Nitrite,Urine Negative (Negative); Particle Count 2882; Protein,Urine 1+ (Negative); Specific Gravity,Urine 1.012 (1.001-1.035); Squamous Epithelial Cell,Urine <1 /hpf (0-4); UA Billing (MACRO vs. MICRO) MICRO; Urobilinogen,Urine <2.0 mg/dL (<2.0); WBC,Urine 1 /hpf (0-5)
[2017-04-07] MEDS ORDERED: SODIUM CHLORIDE 0.9% 1,000 ML IV ONE (13:19)
[2017-04-07 17:23] LABS: Glucose,Whole Blood 125 mg/dL (75-99)
[2017-04-07] MEDS ORDERED: DIPHENOX-ATROP 2.5-0.025 MG 1 EACH TAB PO PRN (18:13)
[2017-04-07] MEDS ORDERED: MOXIFLOXACIN PO SCH ×2 (21:00→21:01)
[2017-04-07] MEDS ORDERED: SULFAMETHOX-TMP 800-160MG 1 EACH TAB PO SCH (21:00)
[2017-04-07 21:43] LABS: Glucose,Whole Blood 188 mg/dL (75-99)
[2017-04-07] MEDS: TACROLIMUS 1 MG CAP PO SCH ×2 (22:09→22:10)
[2017-04-07] MEDS: INSULIN LISPRO (humaLOG) 300 UNIT/3 ML VIAL SQ SCH (22:12)
[2017-04-07] MEDS ORDERED: VANCOMYCIN 1,250 MG in SODIUM CHLORIDE 0.9% 250 ML IVPB STA (22:48)
[2017-04-07] MEDS ORDERED: IV VANCOMYCIN PER PHARMACY 1 EACH MISC MISCELLANE PRN (22:49)
[2017-04-08] MEDS ORDERED: TEMAZEPAM 15 MG CAP PO PRN (00:42)
[2017-04-08] MEDS ORDERED: ALPRAZolam 0.25 MG TAB PO PRN (00:42)
[2017-04-08] MEDS ORDERED: HYDROmorphone 1 MG/ML 1 ML SYRINGE IVP PRN (00:42)
[2017-04-08] MEDS: methylPREDNISolone SOD SUCCI 40 MG/ML 1 ML VIAL IV SCH ×2 (02:02→09:00)
[2017-04-08] MEDS: PANTOPRAZOLE 40 MG/10 ML VIAL IVP SCH ×2 (02:02→07:59)
[2017-04-08 07:18] LABS: Glucose,Whole Blood 185 mg/dL (75-99)
[2017-04-08] MEDS: amLODIPine 2.5 MG TAB PO SCH (07:59)
[2017-04-08] MEDS: METOPROLOL SUCCINATE (ER) 100 MG TAB.ER.24H PO SCH (07:59)
[2017-04-08] MEDS: HEPARIN SODIUM,PORCINE 5,000 UNIT/ML 1 ML VIAL SQ SCH (07:59)
[2017-04-08] MEDS: TACROLIMUS 1 MG CAP PO SCH ×2 (08:00)
[2017-04-08] MEDS: PRAVASTATIN SODIUM 40 MG TAB PO SCH (08:00)
[2017-04-08] MEDS: INSULIN LISPRO (humaLOG) 300 UNIT/3 ML VIAL SQ SCH ×3 (08:02→17:44)
[2017-04-08] MEDS ORDERED: ASPIRIN 81 MG CHEW PO SCH (09:00)
[2017-04-08] MEDS ORDERED: predniSONE 5 MG TAB PO SCH (09:00)
[2017-04-08] MEDS ORDERED: ENOXAPARIN 40 MG/0.4 ML SYRINGE SQ SCH (09:00)
[2017-04-08 11:25] LABS: Glucose,Whole Blood 246 mg/dL (75-99)
[2017-04-08 11:44] VITALS: BMI 27.4
[2017-04-08 13:49] LABS: Hemoglobin A1C 6.8 % (4.2-6.1)
--- NOTE | 2017-04-08 13:51 | CT ---
EXAMINATION TYPE: CT facial bones wo con DATE OF EXAM: 04/08/2017 1:39 PM COMPARISON: NONE HISTORY: Lump near left zygomatic area. Hx of skin graft to area. CT DLP: 724 mGycm Automated exposure control for dose reduction was used. TECHNIQUE: CT scan of the sinuses is performed without contrast, axial images are obtained, coronal r eformatted images are also reviewed. FINDINGS: There is bilateral patency of the ostiomeatal complex. There is fairly normal development a nd aeration of the paranasal sinuses. Orbital margins are intact. Maxilla is intact. Zygomatic arches are intact. There is a 4 x 1 cm area of increased density at the skin surface of the left anterior maxilla. The n jeff bone appears intact. There is no sign of an orbital mass. There is no soft tissue air. IMPRESSION: Irregular skin thickening anterior to the left maxilla. Normal paranasal sinuses. No bony abnormality seen.
[2017-04-08] MEDS: SODIUM CHLORIDE 0.9% 1,000 ML IV SCH (15:31)
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
--- NOTE | 2017-04-08 15:51 | CONS ---
DATE OF CONSULTATION: REASON FOR CONSULTATION: Renal failure in a transplant patient. HISTORY OF PRESENT ILLNESS: Patient is a 76-year-old male with a history of end-stage renal disease, status post living related allograft from daughter in 2013 with a previous history of bilateral lung transplants in 2010. Patient does have CKD with baseline creatinine of about 2.2 mg/dL. He was admitted with complaints of nausea and vomiting as well as diarrhea. He did not feel well. He denied any fever, no chills. No chest pains or shortness of breath. His symptoms have improved and he was able to tolerate some oral intake. Patient has received IV fluids. Currently no fluids are running. He denies any significant chest pain or shortness of breath. There was concern for tacrolimus toxicity and the Prograf dose was adjusted. He is currently on 6 mg b.i.d. and the last level was 10.7 on 03/27/2017. PAST MEDICAL HISTORY: 1. COPD, status post bilateral lung transplant. 2. Chronic kidney disease post kidney transplant in 2013. Continue current immunosuppressive medications and repeat a Prograf level. Will resume a small amount of IV fluids. 3. Status post living related allograft at [facility]. 4. Type 2 diabetes. 5. Lesion on the face being followed by ENT. 6. Coronary artery disease with history of myocardial infarction. 7. Hypertension. 8. BK virus nephropathy. PAST SURGICAL HISTORY: Appendectomy, cholecystectomy, cardiac catheterization, coronary stent, tonsillectomy, dialysis catheter placement removal, left BKA, previous facial surgery for cancer. SOCIAL HISTORY: Positive for patient being an ex-smoker. No history of drug abuse or alcohol abuse. Medications at home included: Insulin, prednisone, Toprol, tacrolimus, Pravachol, insulin, aspirin. ALLERGIES: None. REVIEW OF SYSTEMS: As per HPI. Other systems negative. On examination, the patient is currently comfortable, awake, not in any acute distress. Blood pressure is 126/59, heart rate 69 per minute. He is afebrile. Examination of the heart: S1 and S2. Examination of the lungs: Bilateral breath sounds are heard. Abdomen is soft, nontender. Examination of the lower extremities shows left BKA. No edema noted in the right lower extremity. [employer] exam is grossly intact. There is erythematous based lesion on the left side face on the cheek, which is chronic. There is some discoloration. Dark discoloration noted on it as well. Labs show sodium 142, potassium 4.8, serum creatinine 4.16. Hemoglobin 12.6 g/dL. UA shows 1+ protein, otherwise fairly negative. ASSESSMENT: 1. Acute kidney injury, most likely prerenal. We will resume IV hydration. Urinalysis appears quite benign. I will also repeat a Prograf level prior to tomorrow's morning dose. 2. 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 3. Status post living related renal allograft in 2013. 4. History of bilateral lung transplant. 5. History of chronic lesion on the face being followed by ENT suspicious for malignancy. Facial CT did not reveal any deep lesions except in the skin. 6. Possible viral gastroenteritis. PLAN: Resume gentle IV hydration, check Prograf level in a.m. Continue current immunosuppressive medications and repeat labs tomorrow. Thank you for this consultation. Will continue to follow the patient with you during his hospitalization.
[2017-04-08 17:04] LABS: Glucose,Whole Blood 296 mg/dL (75-99)
[2017-04-08] MEDS ORDERED: TACROLIMUS 1 MG CAP ONE ×2 (21:00)
[2017-04-08] MEDS ORDERED: methylPREDNISolone SOD SUCCI 40 MG/ML 1 ML VIAL ONE (21:00)
[2017-04-08] MEDS ORDERED: HEPARIN SODIUM,PORCINE 5,000 UNIT/ML 1 ML VIAL ONE (21:00)
[2017-04-08] MEDS ORDERED: PANTOPRAZOLE 40 MG/10 ML VIAL ONE (21:00)
[2017-04-08 23:05] LABS: Glucose,Whole Blood 290 mg/dL (75-99)
[2017-04-09 07:29] LABS: Glucose,Whole Blood 323 mg/dL (75-99)
[2017-04-09] MEDS: INSULIN LISPRO (humaLOG) 300 UNIT/3 ML VIAL SQ SCH ×5 (07:47→21:56)
[2017-04-09] MEDS: TACROLIMUS 1 MG CAP PO SCH ×6 (07:47→21:55)
[2017-04-09] MEDS: HEPARIN SODIUM,PORCINE 5,000 UNIT/ML 1 ML VIAL SQ SCH ×3 (07:47→21:56)
[2017-04-09] MEDS: PANTOPRAZOLE 40 MG/10 ML VIAL IVP SCH ×2 (07:47→07:53)
[2017-04-09] MEDS: methylPREDNISolone SOD SUCCI 40 MG/ML 1 ML VIAL IV SCH ×2 (07:47→07:52)
[2017-04-09] MEDS: PRAVASTATIN SODIUM 40 MG TAB PO SCH (07:52)
[2017-04-09] MEDS: amLODIPine 2.5 MG TAB PO SCH (07:52)
[2017-04-09] MEDS: METOPROLOL SUCCINATE (ER) 100 MG TAB.ER.24H PO SCH (07:53)
[2017-04-09 10:53] LABS: Calcium 8.3 mg/dL (8.4-10.2); Potassium 4.9 mmol/L (3.5-5.1)
[2017-04-09 11:23] LABS: Basophils % (A) 0 %; CH 28.6; CHCM 30.8; Eosinophils % (A) 0 %; HCT 31.4 % (39.0-53.0); Hypochromasia Marked; Luc # (Auto) 0.05; Luc % (Auto) 1; Lymphocytes # (A) 0.8 k/uL (1.0-4.8); Lymphocytes % (A) 8 %; MCH 28.5 pg (25.0-35.0); MCHC 30.4 g/dL (31.0-37.0); MCV 93.6 fL (80.0-100.0); Mean Platelet Volume 6.8; Monocytes # (A) 0.5 k/uL (0-1.0); Monocytes % (A) 5 %; Neutrophils # (A) 8.7 k/uL (1.3-7.7); Neutrophils % (A) 87 %; RBC 3.36 m/uL (4.30-5.90); RDW 15.2 % (11.5-15.5); WBC (Perox) 9.38
[2017-04-09 11:28] LABS: HGB 9.6 gm/dL (13.0-17.5)
[2017-04-09 11:39] LABS: Glucose,Whole Blood 483 mg/dL (75-99)
[2017-04-09] MEDS ORDERED: INSULIN GLARGINE 100 UNIT/ML 10 ML VIAL SQ STA (11:55)
--- NOTE | 2017-04-09 12:12 | PN ---
DATE OF SERVICE: 04/08/2017 This 76-year-old gentleman who was admitted with acute on chronic renal failure also had chronic kidney disease. The patient also had significant cellulitis of the face also and with recent skin grafting. Facial CT scan was done and showed irregular skin thickening anterior to the maxilla. No bony abnormalities noted. LABS: Glucose 246, hemoglobin 6.8, hemoglobin is 12.6, creatinine is elevated to 4.16. Current medications are reviewed and include: 1. Xanax 0.5 t.i.d. 2. Norvasc 2.5 mg. 3. Lomotil q.i.d. p.r.n. 4. Heparin 5000 subcu b.i.d. 5. Dilaudid 0.5 q.6 p.r.n. 6. Humalog scale. 7. Solu-Medrol 20 IV b.i.d. 9. Protonix 40 mg IV b.i.d. 10. Pravachol 40 mg daily. 11. Prograf 5 mg p.o. daily. 12. Restoril 15 q.h.s. p.r.n. PHYSICAL EXAMINATION: Patient is alert and oriented x3. Pulse 61, blood pressure 136/90, respirations 14, temperature 97.4, pulse ox 98% on room air. HEENT: Conjunctivae normal. Oral mucosa moist. Facial thickening as discussed present on the left side of the face. NECK: No jugular venous distention. No carotid bruit. No lymph node enlargement. CARDIOVASCULAR: S1 and S2, muffled. No S3, no S4. RESPIRATORY: Breath sounds diminished at the bases. A few scattered rhonchi and crackles. ABDOMEN: Soft, nontender. No mass palpable. LEGS: No edema, no swelling. NERVOUS SYSTEM: No focal deficits. LABS: WBC 10.3, hemoglobin 12.6, CO2 is 20, creatinine 4.16. ASSESSMENT: 1. Acute on chronic renal failure, possible prerenal, multifactorial with acute tubular necrosis. 2. Chronic kidney disease, stage IV, possibly. 3. Anemia, normocytic anemia of chronic disease. 4. Possible cellulitis left face. 5. History of recent skin graft to the left face. 6. Possible acute gastritis, repeated nausea and vomiting. 7. History of dm type 2. 8. History of gastroesophageal reflux disease. 9. Hypertensive, essential, history. 10. History of myocardial infarction. 11. History of coronary artery disease. 12. History of lung cancer with bilateral lung transplant. 13. History of chronic kidney disease with peritoneal dialysis with renal transplant in 2014 with history of rejection. 14. History of abdominal aortic aneurysm. 15. History of peritonitis. 16. History of pancreatitis. 17. History of skin cancer. 18. History of cholecystectomy. 19. History of coronary artery disease and stent. 20. History of left below knee amputation because of trauma. 21. Remote history of nicotine dependence. 22. FULL CODE. RECOMMENDATIONS AND DISCUSSION: In this 76-year-old gentleman who presented with multiple complex medical issues, will monitor the patient closely. Continue the current medications and symptomatic treatment. Dr. Hernandez's input appreciated. Otherwise, nephrology is also following the patient closely. Continue the current medications. The patient appears to be slightly better. Closely monitor with Nephrology and Infectious Disease. Further recommendations to follow. MTDD
[2017-04-09] MEDS: SODIUM CHLORIDE 0.9% 1,000 ML IV SCH (12:32)
--- NOTE | 2017-04-09 16:43 | CONS ---
DATE OF CONSULTATION: 04/08/2017 REASON FOR CONSULTATION: Left facial cellulitis. HISTORY OF PRESENT ILLNESS: The patient is a 76-year-old male with past medical history significant for bilateral lung transplant and also a living related renal transplant. 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 Alexandre followed by skin graft. Patient said that his skin was improving; however about a month ago patient started noticing a growth on his left cheek area that started immediately close to the nose and extended laterally that has become more swollen and indurated. The patient denies significant pain into this area. No significant redness. Patient admits to slight drainage from it. The patient has been evaluated as outpatient by Dr. Alexandre and currently has been started on antibiotics and did have some cultures done. However, the patient now presenting to the [facility] with chief complaints of nausea and vomiting. Patient was noticed to have acute renal failure and patient was started on vancomycin, pharmacy to dose and ID was consulted for further recommendation regarding the facial lesion and a question of possible abscess or cellulitis. REVIEW OF SYSTEMS: CONSTITUTIONAL: Positive for weakness. No fever. EYES: No complaint. ENT: As per HPI. RESPIRATORY: No complaint. CARDIOVASCULAR: No complaint. GENITOURINARY: No complaint. GASTROINTESTINAL: No complaint. MUSCULOSKELETAL: No complaint. INTEGUMENTARY: As per HPI. PSYCHOLOGIC: No complaint. ENDOCRINE: No complaint. NEUROLOGIC: No complaint. Past medical history significant for lung cancer, coronary artery disease, type 2 diabetes mellitus, gastroesophageal reflux disease, hypertension, myocardial infarction, endstage renal disease, status post living related transplant, bilateral lung transplant, cholecystectomy. SOCIAL HISTORY: Remote history of smoking. No drinking or drug use. FAMILY HISTORY: Positive for cancer and liver mets. ALLERGIES: No known drug allergies. Medications include the patient is currently on Xanax, Norvasc, Lomotil, heparin, Dilaudid, Humalog, Solu-Medrol, Toprol-XL, Protonix, Pravachol, Prograf, Restoril, vancomycin pharmacy to dose. On examination, blood pressure is 133/69 with a pulse of 51, temperature 96.4. He is 98% on room air. General description is an elderly male, lying in bed in no distress. No tachypnea or accessory muscle of respiration use. HEENT: No pallor or scleral icterus. Oral mucous membranes dry. Examination of left maxillary/cheek area shows a growth with slight dry scab on the medial side. No significant redness was noticed or any drainage or fluctuation. NECK: Trachea central. There is no thyromegaly. LUNGS: Unlabored breathing. Clear to auscultation anteriorly. HEART: S1, S2 regular rate and rhythm. ABDOMEN: Soft, no tenderness. EXTREMITIES: No edema of feet. NEUROLOGICAL: The patient is awake, alert, oriented x3. Mood and affect normal. LABS: Hemoglobin is 12.6, white count of 10.6. BUN of 50 with a creatinine 4.16. Urine is negative. Urine culture pending. Blood culture negative. DIAGNOSTIC IMPRESSION AND PLAN: Patient with left facial swelling and growth in patient who did have a history of squamous cell carcinoma, status post resection. Clinical suspicion is more likely recurrence of his malignancy. Clinically doubt infectious etiology. However, in view of the patient being immunocompromised because of his transplant history and being on immunosuppressant medication underlying infection both bacterial and viral etiologies cannot be entirely excluded; however, the lesion was noticed to be mobile and not attached to the underlying bone area, though clinically doubt significant cellulitis. PLAN: 1. We will discontinue the vancomycin as clinical suspicion low for MRSA infection and to decrease risk of nephrotoxicity. 2. Will obtain a CT of the facial area without any contrast to make sure no involvement of any destruction of bone. 3. The patient will benefit from ENT evaluation and possible resection of this area as concern is high for malignancy rather than infectious. 4. Will follow up on the clinical condition and cultures and further adjust the medication if needed. Thank you for this consultation. We will follow this patient along with you. JAGDISH
[2017-04-09 17:11] LABS: Glucose,Whole Blood 133 mg/dL (75-99)
[2017-04-09] MEDS: PANTOPRAZOLE 40 MG TABLET PO SCH (17:18)
--- NOTE | 2017-04-09 18:10 | PN ---
Patient is seen for follow-up for acute kidney injury on top of chronic kidney disease. He was admitted to the hospital with not feeling well. He also had some diarrhea, some nausea and vomiting. No complaints currently. He has tolerated oral intake. Patient is maintained on IV fluids. His creatinine was all the way up to 4.1. It is now down to 3.5 mg/dL. On examination, blood pressure is 127/64, heart rate 54 per minute. He is afebrile. Examination of the heart S1 and S2. Examination of the lungs: Bilateral breath sounds are heard. Decreased breath sounds in bases. Abdomen is soft, nontender. Renal allograft is palpable. Examination of lower extremities shows no significant edema. Left BKA is noted. The patient has erythematous raised lesion on his left cheek on the face with discoloration noted in the medial portion of the lesion. Labs show sodium 138, potassium 4.9, BUN 44, serum creatinine 3.5. Glucose was high at 492, calcium 8.3. Hemoglobin 9.6 g/dL. ASSESSMENT: 1. Acute kidney injury, prerenal, currently improved with IV fluids. 2. Chronic kidney disease with chronic allograft, nephropathy/history of BK virus nephropathy with previous creatinine about 2.9 mg/dL. 3. Mild metabolic acidosis. Expect improvement with improving renal function. 4. Status post living related renal transplant from daughter in [address] [facility]. 5. Status post bilateral lung transplant. PLAN: Continue IV fluids. Possible discharge tomorrow. Await ( ) level.
[2017-04-09] MEDS ORDERED: INSULIN GLARGINE 100 UNIT/ML 10 ML VIAL SQ SCH (21:00)
[2017-04-09 21:51] LABS: Glucose,Whole Blood 324 mg/dL (75-99)
[2017-04-10 07:25] LABS: Glucose,Whole Blood 270 mg/dL (75-99)
[2017-04-10] MEDS: METOPROLOL SUCCINATE (ER) 100 MG TAB.ER.24H PO SCH (07:38)
[2017-04-10] MEDS: INSULIN LISPRO (humaLOG) 300 UNIT/3 ML VIAL SQ SCH ×2 (07:38→12:14)
[2017-04-10] MEDS: HEPARIN SODIUM,PORCINE 5,000 UNIT/ML 1 ML VIAL SQ SCH (07:38)
[2017-04-10] MEDS: PANTOPRAZOLE 40 MG TABLET PO SCH (07:38)
[2017-04-10] MEDS: amLODIPine 2.5 MG TAB PO SCH (07:39)
[2017-04-10] MEDS: PRAVASTATIN SODIUM 40 MG TAB PO SCH (07:39)
[2017-04-10] MEDS: TACROLIMUS 1 MG CAP PO SCH ×2 (07:39→07:40)
[2017-04-10] MEDS: SODIUM CHLORIDE 0.9% 1,000 ML IV SCH (07:40)
[2017-04-10 07:44] VITALS: BP 136/62; PULSE 62; RESP 20; TEMP 96.8
[2017-04-10] MEDS ORDERED: methylPREDNISolone SOD SUCCI 40 MG/ML 1 ML VIAL IV SCH (09:00)
[2017-04-10 09:35] LABS: Basophils % (A) 0 %; CH 28.9; CHCM 31.4; Eosinophils # (A) 0.1 k/uL (0-0.7); Eosinophils % (A) 1 %; HDW 3.41; HGB 10.1 gm/dL (13.0-17.5); Hypochromasia Moderate; Luc # (Auto) 0.04; Luc % (Auto) 1; Lymphocytes # (A) 0.9 k/uL (1.0-4.8); Lymphocytes % (A) 13 %; MCH 29.4 pg (25.0-35.0); MCHC 31.7 g/dL (31.0-37.0); MCV 92.7 fL (80.0-100.0); Mean Platelet Volume 6.6; Monocytes # (A) 0.3 k/uL (0-1.0); Monocytes % (A) 5 %; Neutrophils # (A) 5.4 k/uL (1.3-7.7); Neutrophils % (A) 79 %; Poikilocytosis Slight; RBC 3.45 m/uL (4.30-5.90); RDW 15.5 % (11.5-15.5); WBC 6.8 k/uL (3.8-10.6); WBC (Perox) 6.97
[2017-04-10 10:13] LABS: Calcium 8.4 mg/dL (8.4-10.2); Potassium 4.4 mmol/L (3.5-5.1)
--- NOTE | 2017-04-10 10:19 | PN ---
DATE OF SERVICE: 04/09/2017 Reason for followup is: 1. Antibiotic-associated nausea, vomiting, and diarrhea. 2. Left cheek growth with a question of cellulitis. INTERVAL HISTORY: The patient is afebrile. He is feeling better. No further nausea, vomiting or diarrhea has been noticed. Patient denies any pain to the left maxillary area. Denies any chest pain, shortness of breath or cough and no abdominal pain. On examination, blood pressure 127/54, pulse of 54, temperature 96.7. He is 97% on room air. General description is an elderly male, lying in bed in no distress. HEENT EXAMINATION: At the left maxillary area the patient did have a growth with slight dry scab. No surrounding redness or any drainage. LUNGS: Unlabored breathing. Clear to auscultation anteriorly. HEART: S1, S2. Regular rate and open. ABDOMEN: Soft, no tenderness. LABS: Hemoglobin is 9.6, white count of 10, with a BUN 44, creatinine 3.50. Blood culture has been negative. DIAGNOSTIC IMPRESSION AND PLAN: 1. Patient admitted to hospital with nausea and vomiting, more likely antibiotic-associated, dose has been discontinued. The patient's symptom has resolved. 2. Patient with the left maxillary area swelling, likely a malignancy. history of squamous cell carcinoma. He needs to follow up with the ENT for further resection of the same. Clinically doubt any infectious; hence, will hold on any empiric antibiotic at this point. JAGDISH
[2017-04-10 12:10] LABS: Glucose,Whole Blood 135 mg/dL (75-99)
--- NOTE | 2017-04-10 12:20 | PN ---
DATE OF SERVICE: 04/09/2017 This 76-year-old gentleman who was admitted with acute on chronic renal failure also had significant cellulitis of the left face. The patient also had immunosuppression. The patient's blood sugar has been elevated. It had gone up to 492 no acute distress then 483. Multiple consultants are following the patient closely, including Nephrology as well as Infectious Disease. PAST MEDICAL HISTORY: Reviewed. REVIEW OF SYSTEMS: HEENT: As mentioned earlier. CARDIOVASCULAR: No angina or palpitations. RESPIRATORY: As mentioned earlier. GI: As mentioned earlier. : No dysuria. NERVOUS: No numbness, weakness. ALLERGY/IMMUNOLOGY: No asthma or hay fever. MUSCULOSKELETAL: As mentioned earlier. Current medications are reviewed and include: 1. Xanax 0.5 t.i.d. 2. Norvasc 2.5 daily. 3. Lomotil. 4. Heparin. 5. Dilaudid. 6. Lantus 15 units subcu q.h.s. 7. Solu-Medrol 20 IV b.i.d. 8. Toprol XL. 9. Protonix. 10. Prograf. 11. Restoril. PHYSICAL EXAMINATION: He is alert and oriented x3. Pulse 54, blood pressure 126/64, respirations 16, temperature 96.7, pulse ox 97% on room air. HEENT: Conjunctivae normal. Oral mucosa moist. NECK: No jugular venous distention. No carotid bruits. No lymph node enlargement. CARDIOVASCULAR: S1 and S2, muffled. RESPIRATORY: Breath sounds diminished at the bases. No rhonchi. No crackles. ABDOMEN: Soft, nontender. No mass palpable. LEGS: No edema no swelling. NERVOUS SYSTEM: Higher functions as mentioned earlier. Moves all 4 limbs. No focal deficits. FACE: Left scar and some erythema, tenderness and induration also present. Lab investigation at this time shows WBC 10, hemoglobin is 10.6. Sodium 136, potassium 4.8, creatinine is 3.5 and glucose 492. ASSESSMENT: 1. Acute on chronic renal failure, possibly prerenal, multifactorial with acute tubular necrosis. 2. Chronic kidney disease, stage 4 possibly. 3. Anemia, normocytic anemia of chronic disease. 4. Possible acute cellulitis left face. 5. History of recent skin graft to the left face. 6. Possible acute gastritis with repeated nausea and vomiting, improved. 7. History of diabetes mellitus type 2. 8. History of gastroesophageal reflux disease. 9. Hypertension, essential, history. 10. History of myocardial infarction. 11. History of coronary artery disease. 12. History of lung cancer with bilateral lung transplant. 13. History of chronic kidney disease with peritoneal dialysis with renal transplant in 2014 with history of rejection. 14. History of abdominal aortic aneurysm. 15. History of peritonitis. 16. History of pancreatitis. 17. History of skin cancer. 18. History of cholecystectomy. 19. History of coronary artery disease and stent. 20. History of left below-knee amputation because of trauma. 21. Remote history of nicotine dependence. 22. FULL CODE. RECOMMENDATIONS AND DISCUSSION: In this 76-year-old gentleman who presented with multiple complex medical issues, will monitor the patient closely. Continue the current medications and symptomatic treatment. Otherwise will monitor the creatinine closely. The blood sugar will be monitored and closely controlled. Recommend Lantus 15 units subcu q.h.s. and continue to monitor. Guarded prognosis. Further recommendations to follow. We will follow the cultures as well.
--- NOTE | 2017-04-10 15:32 | PN ---
DATE OF SERVICE: 04/10/2017 Reason for followup is: 1. Antibiotic-associated nausea, vomiting, diarrhea, resolved. 2. Left cheek growth likely malignancy, doubt cellulitis. INTERVAL HISTORY: The patient is afebrile. He has been breathing comfortably. Patient denies any significant chest pain or shortness of breath. No cough, no nausea, vomiting or any diarrhea. Denies any pain in his left cheek area. On examination, blood pressure 136/52 with a pulse of 62, temperature 96.8. He is 97% on room air. General description is an elderly male, up in the chair in no distress. HEENT EXAMINATION: The left cheek area with some swelling.but no redness or any drainage. LUNGS: Unlabored breathing. Clear to auscultation anteriorly. HEART: S1, S2 with regular rate and rhythm. ABDOMEN: Soft, no tenderness. LABS: Hemoglobin is 10.1, white count 6.8 with a BUN of 39, creatinine is 2.88. Blood culture has been negative. DIAGNOSTIC IMPRESSION AND PLAN: 1. Patient with antibiotics-associated nausea, vomiting and diarrhea, resolved. No need for further antibiotic therapy at this point. 2. Patient left cheek growth need to be biopsied. looking for initial infection though less likely. CT was negative for any bony He will follow with his ENT as an outpatient. No antibiotic on discharge. [facility]
--- NOTE | 2017-04-10 23:11 | PN ---
Patient is seen for follow-up for acute kidney injury which was mainly prerenal. Patient was started on IV fluids. He was admitted to the hospital with decreased p.o. intake, nausea and vomiting, which now has resolved. His Prograf level is not back yet, serum creatinine is down from around 4.16 on admission to 2.8 now. Patient has been tolerating oral intake with no GI complaints. On examination, blood pressure is 136/62, heart rate 62 per minute. She is afebrile. Examination of the heart S1 and S2. Examination of the lungs: Bilateral breath sounds are heard. ABDOMEN: Soft, nontender. Examination of lower extremities shows left BKA. No edema noted in his right lower extremity. [facility] exam is grossly intact. Labs show serum creatinine 2.8, sodium 143, potassium 4.4. Hemoglobin 10.1 g/dL. ASSESSMENT: 1. Acute kidney injury, prerenal, currently improved. 2. 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 3. Status post living related allograft from daughter in 2013 at [facility] maintained on prednisone and Prograf, the Prograf level is pending. He has had high levels before. We may need to follow up on the Prograf level as outpatient. 4. Skin lesion on the left side of the cheek on the face being followed by ENT likely malignancy. CAT scan did not show any deep invasion.
--- NOTE | 2017-04-11 20:45 | DS ---
DATE OF ADMISSION: 04/07/2017 DATE OF DISCHARGE: 04/10/2017 FINAL DIAGNOSES: 1. Acute on chronic renal failure, possible prerenal, multifactorial, with acute tubular necrosis, improved. 2. Chronic kidney disease, stage IV, possibly. 3. Anemia; normocytic anemia of chronic disease. 4. Possible chronic cellulitis of the left face. 5. History of recent skin graft to the left face. 6. Possible acute gastritis with repeated nausea and vomiting, improved. 7. History of diabetes mellitus, type 2. 8. History of gastroesophageal reflux disease. 9. Hypertension, essential, history. 10. History of myocardial infarction. 11. History of coronary artery disease. 12. History of lung cancer with bilateral lung transplant. 13. History of chronic kidney disease with peritoneal dialysis with renal transplant in 2013 with a history of rejection. 14. History of abdominal aortic aneurysm. 15. History of peritonitis. 16. History of pancreatitis. 17. History of skin cancer. 18. History of cholecystectomy. 19. History of coronary artery disease, stent. 20. History of left below-knee amputation because of trauma. 21. Remote history of nicotine dependence. 22. FULL CODE. DISCHARGE DISPOSITION: Patient will be discharged in stable condition with guarded prognosis. Total time taken 35 minutes. HISTORY OF PRESENT ILLNESS: This 76-year-old gentleman with a past medical history of multiple medical problems, with acute on chronic renal failure, was admitted with multiple medical problems as well as anemia. Patient also had suspected acute cellulitis, but Dr. Hernandez recommended discontinuing the antibiotics and continue to monitor; cultures were negative. Creatinine is 2.88 from 4.1, which is the patient's ( ) baseline. On exam, vitals are stable. CARDIOVASCULAR SYSTEM: S1, S2 muffled. ABDOMEN: Soft. NERVOUS SYSTEM: No focal deficit. Left facial lesion present. DISCHARGE ADVICE AND MEDICATIONS: 1. Diet is cardiac. 2. Activity limited until followup. 3. Follow up with Dr. Urbina in 2 to 3 days. 4. Follow up with Dr. Polo as advised. 5. Hold aspirin for now. 6. Diphenoxylate p.r.n. 7. Lantus 15 units subcutaneously at bedtime. 8. Toprol XL 100 mg p.o. daily. 9. Pravachol 40 mg daily. 10. Stop the Bactrim. 11. Tacrolimus 1 tablet p.o. b.i.d. 12. Tacrolimus 5 mg p.o. b.i.d. 13. Norvasc 2.5 mg daily. 14. Prednisone 5 mg daily. 15. Protonix 40 mg p.o. b.i.d. Once again, the patient will be discharged in stable condition with guarded prognosis.
== END 2017-04-10 14:42 | disposition home or self-care (01) | DRG 683 ==
LOC: EC 10:48 → 4MS4W 13:19
PROVIDERS: ADMIT Hospitalist; ATTEND Hospitalist
DX: N17.0 Acute kidney failure with tubular necrosis (principal); Z94.2 Lung transplant status; T86.11 Kidney transplant rejection; E87.2 Acidosis; I12.0 Hypertensive chronic kidney disease with stage 5 chronic kidney disease or end stage renal disease; D63.8 Anemia in other chronic diseases classified elsewhere; C44.320 Squamous cell carcinoma of skin of unspecified parts of face; N18.5 Chronic kidney disease, stage 5; E11.22 Type 2 diabetes mellitus with diabetic chronic kidney disease; J44.9 Chronic obstructive pulmonary disease, unspecified; I25.10 Atherosclerotic heart disease of native coronary artery without angina pectoris; K21.9 Gastro-esophageal reflux disease without esophagitis; I25.2 Old myocardial infarction; Z85.118 Personal history of other malignant neoplasm of bronchus and lung; Z86.79 Personal history of other diseases of the circulatory system; Z90.49 Acquired absence of other specified parts of digestive tract; Z95.5 Presence of coronary angioplasty implant and graft; Z87.891 Personal history of nicotine dependence; Z89.512 Acquired absence of left leg below knee; Z99.2 Dependence on renal dialysis; Z79.82 Long term (current) use of aspirin; Z79.899 Other long term (current) drug therapy; Z79.52 Long term (current) use of systemic steroids
CPT/HCPCS: 36415; 70486; 80048; 80053; 80197; 81001; 82550; 82553; 83036; 83605; 83690; 84484; 85025; 85610; 85730; 87040; 87086; 93005; 99285

== ENCOUNTER 2017-04-27 07:13 | Day surgery (SDC) | payer MEDICARE ==
[2017-04-21 11:00] VITALS: BMI 28.1
[~2017-04-27 07:13] MED LIST: ACETAMINOPHEN TAB 500 MG TAB PO ONE; DEXAMETHASONE SOD PHOSPHATE 4 MG/ML 1 ML VIAL IV ONE; FAMOTIDINE 20 MG/2 ML VIAL IV ONE; HYDROmorphone 1 MG/ML 1 ML SYRINGE IVP PRN; LACTATED RINGERS 1,000 ML IV SCH; LIDOCAINE 1% 20 ML VIAL (10MG/ML) FOR IV START INTRADERMA PRN; ONDANSETRON 4 MG/2 ML VIAL IVP ONE; ceFAZolin 2 GM in SODIUM CHLORIDE 0.9% 100 ML IVPB ONE
[2017-04-27 07:43] VITALS: RESP 16
[2017-04-27 07:51] LABS: Glucose,Whole Blood 164 mg/dL (75-99)
[2017-04-27] MEDS ORDERED: MIDAZOLAM 2 MG/2 ML VIAL ONE (08:42)
[2017-04-27] MEDS ORDERED: methylPREDNISolone SOD SUCCI 125 MG/2 ML VIAL ONE (08:42)
[2017-04-27] MEDS ORDERED: LIDOCAINE 1% INJ 10MG/ML (20 ML MDV) ONE (08:42)
[2017-04-27] MEDS ORDERED: PROPOFOL 10 MG/ML 20 ML VIAL IV ONE (08:42)
[2017-04-27] MEDS ORDERED: fentaNYL (PF) 50 MCG/ML 2 ML AMP ONE (08:42)
[2017-04-27] MEDS ORDERED: LIDOCAINE 1%-EPI 1:100,000 20 ML VIAL SQ ONE (09:45)
[2017-04-27] MEDS ORDERED: BUPIVACAIN-EPI 0.5%-1:200,000 30 ML VIAL SQ ONE (09:45)
[2017-04-27 10:02] VITALS: TEMP 97.2
--- NOTE | 2017-04-27 10:16 | P.OP ---
Date of Procedure: 04/27/17 Preoperative Diagnosis: 7 x 5 cm left facial mass Postoperative Diagnosis: 7 x 5 cm left facial mass frozen section revealing a high-grade malignancy Procedure(s) Performed: Excision of a 7 x 5 cm left facial mass i.e. high-grade malignancy Implants: Anesthesia: ABHINAVA Surgeon: Jose Luis Alexandre Estimated Blood Loss (ml): 5 Pathology: other (Left facial mass) Condition: stable Disposition: PACU Indications for Procedure: This patient had a skin cancer removed from his left cheek and the margins were negative for tumor. This was performed in December and he was doing wonderfully with an excellent result then returned in March with a growth on the left cheek. We initially thought this could be a reaction to the suture material or possible granuloma and antibiotics were instituted but the growth continued to expand any growth was impressive. We decided to remove this for biopsy purposes. The patient is a transplant patient on immunosuppressive medications. Operative Findings: Frozen section analysis shows a high-grade malignancy etiology not known. Possibly melanoma per the pathologist. Awaiting final pathology. We'll keep this covered with Telfa and not cover with a skin graft as a wider resection will be needed. Description of Procedure: This patient was taken to the operative room and placed in the supine position. A general inhalation anesthetic was administered to the patient by mask and subsequently intubated with a cuffed endotracheal tube by the department of anesthesia with a functioning IV line in place. The patient was monitored throughout the entire case by the department of anesthesia. The left face and neck was sterilely prepped and draped in usual fashion and the patient demonstrated a fairly large left facial mass measuring approximately 5 x 7 cm. We anesthetize this area and excised with a 15 blade the visible tumor. We sent this for frozen section and came back as a high-grade malignancy. Clearly a wider resection is needed and this patient will need adjustment of his immunosuppressive medications. Is also developed a little swelling to the left temporal area which most likely is also a cancer. In light of this patient's very aggressive cancer and transplant issues we've decided to refer this patient to a Medical Center such as [facility] or [facility] and we will expedite that referral.
[2017-04-27 10:18] LABS: Glucose,Whole Blood 227 mg/dL (75-99)
[2017-04-27 11:15] VITALS: PULSE 61
[2017-04-27 11:35] VITALS: BP 164/68
== END 2017-04-27 11:54 | disposition home or self-care (01) ==
LOC: OR 07:13
PROVIDERS: ATTEND Otolaryngology
DX: C44.309 Unspecified malignant neoplasm of skin of other parts of face (principal); I25.10 Atherosclerotic heart disease of native coronary artery without angina pectoris; Z95.5 Presence of coronary angioplasty implant and graft; I10 Essential (primary) hypertension; E78.5 Hyperlipidemia, unspecified; J44.9 Chronic obstructive pulmonary disease, unspecified; E11.9 Type 2 diabetes mellitus without complications; I25.2 Old myocardial infarction; Z79.82 Long term (current) use of aspirin; Z79.4 Long term (current) use of insulin; Z79.52 Long term (current) use of systemic steroids; Z79.899 Other long term (current) drug therapy; Z94.0 Kidney transplant status; Z94.2 Lung transplant status; Z87.891 Personal history of nicotine dependence
CPT/HCPCS: 11646; 88305; 88342; 88331; 88341; J2250; J2930; J0690; J2405; J2001; J3010; J2704

== ENCOUNTER → 2017-05-02 | Outpatient (CLI) | payer MEDICARE ==
[2017-05-02 10:40] LABS: Basophils % (A) 0 %; CH 28.5; CHCM 31.8; Eosinophils # (A) 0.1 k/uL (0-0.7); Eosinophils % (A) 1 %; HCT 35.8 % (39.0-53.0); HGB 11.6 gm/dL (13.0-17.5); Hypochromasia Slight; Luc % (Auto) 1; Lymphocytes # (A) 1.5 k/uL (1.0-4.8); Lymphocytes % (A) 19 %; MCH 29.1 pg (25.0-35.0); MCHC 32.3 g/dL (31.0-37.0); MCV 90.2 fL (80.0-100.0); Mean Platelet Volume 7.4; Monocytes # (A) 0.4 k/uL (0-1.0); Monocytes % (A) 5 %; Neutrophils # (A) 5.6 k/uL (1.3-7.7); Neutrophils % (A) 73 %; RBC 3.97 m/uL (4.30-5.90); RDW 15.1 % (11.5-15.5); WBC 7.7 k/uL (3.8-10.6); WBC (Perox) 8.13
[2017-05-02 10:43] LABS: Appearance,Urine Clear (Clear); Bilirubin,Urine Negative (Negative); Glucose,Urine (UA) 3+ (Negative); Ketones,Urine Negative (Negative); Leukocyte Esterase,Urine Negative (Negative); Nitrite,Urine Negative (Negative); PH, Urine 5.5 (5.0-8.0); Particle Count 1086; Protein,Urine 1+ (Negative); Specific Gravity,Urine 1.012 (1.001-1.035); UA Billing (MACRO vs. MICRO) MICRO; Urobilinogen,Urine <2.0 mg/dL (<2.0); WBC,Urine 1 /hpf (0-5)
[2017-05-02 11:05] LABS: Calcium 9.6 mg/dL (8.4-10.2); Magnesium 1.4 mg/dL (1.6-2.3); Phosphorous 2.5 mg/dL (2.5-4.5); Potassium 4.6 mmol/L (3.5-5.1); Uric Acid 9.6 mg/dL (3.5-8.5)
[2017-05-02 11:16] LABS: % Iron Saturation 17.9 % (20-50)
== END | disposition home or self-care (01) ==
LOC: LABWHC1 10:04
PROVIDERS: ATTEND Internal Medicine Nephrology
DX: E55.9 Vitamin D deficiency, unspecified (principal); E21.3 Hyperparathyroidism, unspecified; D64.9 Anemia, unspecified; M10.9 Gout, unspecified; N39.0 Urinary tract infection, site not specified; Z94.0 Kidney transplant status
CPT/HCPCS: 36415; 80048; 80197; 81001; 82306; 82728; 83540; 83550; 83735; 83970; 84100; 84550; 85025

== ENCOUNTER → 2017-07-14 | Outpatient (CLI) | payer MEDICARE ==
[2017-07-14 13:16] VITALS: BP 161/75; PULSE 58; RESP 18; TEMP 98.1
[2017-07-14] MEDS: SODIUM CHLORIDE 0.9% 500 ML in EMPTY BAG 1 BAG IV PRN ×4 (13:20→15:24)
== END ==
LOC: PROCWHC3 12:38
PROVIDERS: ATTEND Nurse Practitioner Family
DX: E86.0 Dehydration (principal)
CPT/HCPCS: 96360; 96361

== ENCOUNTER → 2017-07-27 | Outpatient (CLI) | payer MEDICARE ==
[2017-07-27 12:11] LABS: Appearance,Urine Cloudy (Clear); Bilirubin,Urine Negative (Negative); Glucose,Urine (UA) Negative (Negative); Ketones,Urine Negative (Negative); Leukocyte Esterase,Urine Large (Negative); Mucus,Urine Rare /hpf; Nitrite,Urine Negative (Negative); PH, Urine 5.5 (5.0-8.0); Particle Count 2200; Protein,Urine Trace (Negative); RBC,Urine 14 /hpf (0-5); Specific Gravity,Urine 1.009 (1.001-1.035); Squamous Epithelial Cell,Urine <1 /hpf (0-4); UA Billing (MACRO vs. MICRO) MICRO; Urobilinogen,Urine <2.0 mg/dL (<2.0); WBC,Urine 97 /hpf (0-5)
[2017-07-27 12:34] LABS: Calcium 9.7 mg/dL (8.4-10.2); Magnesium 1.2 mg/dL (1.6-2.3); Phosphorous 3.5 mg/dL (2.5-4.5); Total Bilirubin 0.2 mg/dL (0.2-1.3); Total Protein 6.2 g/dL (6.3-8.2); Uric Acid 8.5 mg/dL (3.5-8.5)
[2017-07-27 12:43] LABS: % Iron Saturation 15.2 % (20-50)
== END | disposition home or self-care (01) ==
LOC: LABWHC1 11:24
PROVIDERS: ATTEND Internal Medicine Nephrology
DX: D64.9 Anemia, unspecified (principal); E55.9 Vitamin D deficiency, unspecified; M10.9 Gout, unspecified; Z94.0 Kidney transplant status
CPT/HCPCS: 36415; 80053; 81001; 82306; 82570; 82728; 83540; 83550; 83735; 83970; 84100; 84156; 84550

== ENCOUNTER → 2017-08-04 | Outpatient (CLI) | payer MEDICARE ==
[~2017-08-04] MED LIST changes: -ACETAMINOPHEN TAB 500 MG TAB PO ONE; -DEXAMETHASONE SOD PHOSPHATE 4 MG/ML 1 ML VIAL IV ONE; -FAMOTIDINE 20 MG/2 ML VIAL IV ONE; -HYDROmorphone 1 MG/ML 1 ML SYRINGE IVP PRN; -LACTATED RINGERS 1,000 ML IV SCH; -LIDOCAINE 1% 20 ML VIAL (10MG/ML) FOR IV START INTRADERMA PRN; -ONDANSETRON 4 MG/2 ML VIAL IVP ONE; +SODIUM CHLORIDE 0.9% 1,000 ML IV ONE; +SODIUM CHLORIDE 0.9% 500 ML in EMPTY BAG 1 BAG IV PRN; -ceFAZolin 2 GM in SODIUM CHLORIDE 0.9% 100 ML IVPB ONE
[2017-08-04 07:27] VITALS: BP 136/73; PULSE 65; RESP 16; TEMP 97.8
[2017-08-04 10:56] LABS: Appearance,Urine Clear (Clear); Bilirubin,Urine Negative (Negative); Glucose,Urine (UA) 2+ (Negative); Ketones,Urine Negative (Negative); Leukocyte Esterase,Urine Negative (Negative); Nitrite,Urine Negative (Negative); PH, Urine 6.5 (5.0-8.0); Protein,Urine Negative (Negative); Specific Gravity,Urine 1.006 (1.001-1.035); UA Billing (MACRO vs. MICRO) CHEM; Urobilinogen,Urine <2.0 mg/dL (<2.0)
== END | disposition home or self-care (01) ==
LOC: PROCWHC3 07:14
PROVIDERS: ATTEND Internal Medicine Nephrology
DX: E86.0 Dehydration (principal); N39.0 Urinary tract infection, site not specified; N18.4 Chronic kidney disease, stage 4 (severe)
CPT/HCPCS: 81003; 96360; 96361

== ENCOUNTER → 2017-08-23 | Outpatient (CLI) | payer MEDICARE ==
[2017-08-23 12:04] LABS: Anisocytosis Slight; Basophils % (A) 0 %; CH 27.9; CHCM 30.4; Eosinophils # (A) 0.1 k/uL (0-0.7); Eosinophils % (A) 2 %; HCT 31.5 % (39.0-53.0); HDW 2.98; HGB 9.4 gm/dL (13.0-17.5); Hypochromasia Marked; Luc # (Auto) 0.05; Luc % (Auto) 1; Lymphocytes # (A) 0.8 k/uL (1.0-4.8); Lymphocytes % (A) 18 %; MCH 27.3 pg (25.0-35.0); MCHC 29.7 g/dL (31.0-37.0); MCV 92.1 fL (80.0-100.0); Monocytes # (A) 0.3 k/uL (0-1.0); Monocytes % (A) 6 %; Neutrophils # (A) 3.3 k/uL (1.3-7.7); Neutrophils % (A) 72 %; RBC 3.42 m/uL (4.30-5.90); RDW 17.7 % (11.5-15.5); WBC 4.6 k/uL (3.8-10.6); WBC (Perox) 4.84
[2017-08-23 12:22] LABS: ALT 26 U/L (21-72); AST 11 U/L (17-59); Alkaline Phosphatase 90 U/L (38-126); Anion Gap 12 mmol/L; Blood Urea Nitrogen 26 mg/dL (9-20); Calcium 9.7 mg/dL (8.4-10.2); Carbon Dioxide 22 mmol/L (22-30); Chloride 109 mmol/L (98-107); Glucose 184 mg/dL (74-99); HDL Cholesterol 45 mg/dL (40-60); Magnesium 1.1 mg/dL (1.6-2.3); Non-African American GFR(MDRD) 25 (>60 ml/min/1.73 sqM); Phosphorous 3.3 mg/dL (2.5-4.5); Potassium 4.8 mmol/L (3.5-5.1); Sodium 143 mmol/L (137-145); Total Bilirubin 0.3 mg/dL (0.2-1.3); Total Protein 6.5 g/dL (6.3-8.2)
[2017-08-23 12:25] LABS: Cholesterol 197 mg/dL (<200)
[2017-08-23 13:37] LABS: Hemoglobin A1C 6.5 % (4.2-6.1)
== END | disposition home or self-care (01) ==
LOC: LABWHC1 10:56
PROVIDERS: ATTEND Specialist
DX: T86.90 Unspecified complication of unspecified transplanted organ and tissue (principal); D89.9 Disorder involving the immune mechanism, unspecified; E55.9 Vitamin D deficiency, unspecified; E34.9 Endocrine disorder, unspecified; E10.9 Type 1 diabetes mellitus without complications; N18.6 End stage renal disease; Z79.899 Other long term (current) drug therapy
CPT/HCPCS: 36415; 80053; 80061; 80197; 82306; 82570; 83036; 83735; 83970; 84100; 84156; 84550; 85025

== ENCOUNTER → 2017-10-03 | Outpatient (CLI) | payer MEDICARE ==
[2017-10-03 10:27] LABS: Anisocytosis Slight; Basophils % (A) 0 %; CH 26.6; CHCM 30.5; Eosinophils # (A) 0.1 k/uL (0-0.7); Eosinophils % (A) 3 %; HCT 29.6 % (39.0-53.0); HDW 3.29; HGB 8.9 gm/dL (13.0-17.5); Hypochromasia Marked; Luc # (Auto) 0.05; Luc % (Auto) 1; Lymphocytes # (A) 0.4 k/uL (1.0-4.8); Lymphocytes % (A) 9 %; MCH 26.5 pg (25.0-35.0); MCHC 30.2 g/dL (31.0-37.0); MCV 87.9 fL (80.0-100.0); Mean Platelet Volume 7.4; Monocytes # (A) 0.2 k/uL (0-1.0); Monocytes % (A) 5 %; Neutrophils # (A) 3.5 k/uL (1.3-7.7); Neutrophils % (A) 82 %; RBC 3.36 m/uL (4.30-5.90); RDW 18.6 % (11.5-15.5); WBC 4.2 k/uL (3.8-10.6); WBC (Perox) 4.55
[2017-10-03 10:40] LABS: Chloride 102 mmol/L (98-107); Glucose 176 mg/dL (74-99); Uric Acid 7.1 mg/dL (3.5-8.5)
[2017-10-03 10:41] LABS: Anion Gap 8 mmol/L; Blood Urea Nitrogen 28 mg/dL (9-20); Calcium 10.3 mg/dL (8.4-10.2); Carbon Dioxide 28 mmol/L (22-30); Magnesium 1.7 mg/dL (1.6-2.3); Non-African American GFR(MDRD) 23 (>60 ml/min/1.73 sqM); Phosphorus 3.4 mg/dL (2.5-4.5); Potassium 4.6 mmol/L (3.5-5.1); Sodium 138 mmol/L (137-145)
== END | disposition home or self-care (01) ==
LOC: LABWHC1 09:58
PROVIDERS: ATTEND Specialist
DX: Z94.0 Kidney transplant status (principal)
CPT/HCPCS: 36415; 80048; 80197; 83735; 84100; 84550; 85025

== ENCOUNTER → 2017-12-26 | Outpatient (CLI) | payer MEDICARE ==
[2017-12-26 11:24] LABS: Basophils % (A) 1 %; Eosinophils # (A) 0.1 k/uL (0-0.7); Eosinophils % (A) 2 %; HCT 32.7 % (39.0-53.0); HGB 9.9 gm/dL (13.0-17.5); Hypochromasia Marked; Lymphocytes # (A) 1.5 k/uL (1.0-4.8); Lymphocytes % (A) 29 %; MCH 26.3 pg (25.0-35.0); MCHC 30.2 g/dL (31.0-37.0); MCV 87.2 fL (80.0-100.0); Mean Platelet Volume 6.5; Monocytes # (A) 0.4 k/uL (0-1.0); Monocytes % (A) 8 %; Neutrophils % (A) 59 %; Platelet Count 258 k/uL (150-450); RBC 3.75 m/uL (4.30-5.90); RDW 15.4 % (11.5-15.5); WBC 5.1 k/uL (3.8-10.6)
[2017-12-26 11:33] LABS: Albumin 3.6 g/dL (3.5-5.0); Appearance,Urine Cloudy (Clear); Bacteria,Urine Rare /hpf; Bilirubin,Urine Negative (Negative); Blood,Urine Negative (Negative); Budding Yeast,Urine Many /hpf; Calcium 9.9 mg/dL (8.4-10.2); Color,Urine Light Yellow; Glucose,Urine (UA) Negative (Negative); Ketones,Urine Negative (Negative); Leukocyte Esterase,Urine Large (Negative); Magnesium 1.7 mg/dL (1.6-2.3); Nitrite,Urine Negative (Negative); PH, Urine 5.5 (5.0-8.0); Phosphorus 3.2 mg/dL (2.5-4.5); Potassium 4.1 mmol/L (3.5-5.1); Protein,Urine 1+ (Negative); RBC,Urine 11 /hpf (0-5); Specific Gravity,Urine 1.011 (1.001-1.035); Squamous Epithelial Cell,Urine <1 /hpf (0-4); Uric Acid 9.5 mg/dL (3.5-8.5); Urobilinogen,Urine <2.0 mg/dL (<2.0); WBC,Urine >182 /hpf (0-5)
[2017-12-26 16:47] LABS: Iron Saturation 13.25 (15.00-50.00)
[2017-12-26 16:57] LABS: Vitamin D 25 Hydroxy 31.2 ng/mL (30.0-100.0)
[2017-12-26 18:49] LABS: Parathyroid Hormone Intact 161.4 pg/mL (14.0-72.0)
== END | disposition home or self-care (01) ==
LOC: LABWHC1 10:21
PROVIDERS: ATTEND Nurse Practitioner Family
DX: N39.0 Urinary tract infection, site not specified (principal); N18.4 Chronic kidney disease, stage 4 (severe); E79.0 Hyperuricemia without signs of inflammatory arthritis and tophaceous disease; D64.9 Anemia, unspecified; E55.9 Vitamin D deficiency, unspecified; Z94.0 Kidney transplant status
CPT/HCPCS: 36415; 80048; 80197; 81001; 82040; 82306; 82728; 83540; 83550; 83735; 83970; 84100; 84550; 85025

== ENCOUNTER → 2018-03-26 | Outpatient (CLI) | payer MEDICARE ==
[2018-03-26 11:11] LABS: Basophils % (A) 0 %; Eosinophils # (A) 0.1 k/uL (0-0.7); Eosinophils % (A) 1 %; HGB 10.1 gm/dL (13.0-17.5); Hypochromasia Moderate; Lymphocytes # (A) 0.6 k/uL (1.0-4.8); Lymphocytes % (A) 9 %; MCH 26.5 pg (25.0-35.0); MCHC 30.5 g/dL (31.0-37.0); MCV 86.8 fL (80.0-100.0); Mean Platelet Volume 7.2; Monocytes # (A) 0.4 k/uL (0-1.0); Monocytes % (A) 6 %; Neutrophils # (A) 5.8 k/uL (1.3-7.7); Neutrophils % (A) 83 %; Platelet Count 249 k/uL (150-450); RDW 15.5 % (11.5-15.5)
[2018-03-26 11:27] LABS: Albumin 3.6 g/dL (3.5-5.0); Calcium 9.5 mg/dL (8.4-10.2); Magnesium 1.4 mg/dL (1.6-2.3); Potassium 4.3 mmol/L (3.5-5.1); Uric Acid 5.1 mg/dL (3.5-8.5)
[2018-03-26 11:39] LABS: Appearance,Urine Cloudy (Clear); Bilirubin,Urine Negative (Negative); Blood,Urine Negative (Negative); Budding Yeast,Urine Moderate /hpf; Color,Urine Yellow; Glucose,Urine (UA) 3+ (Negative); Hyphae Yeast, Urine Rare /hpf; Ketones,Urine Negative (Negative); Leukocyte Esterase,Urine Large (Negative); Mucus,Urine Rare /hpf; Nitrite,Urine Negative (Negative); PH, Urine 5.5 (5.0-8.0); Protein,Urine 1+ (Negative); RBC,Urine 5 /hpf (0-5); Urobilinogen,Urine <2.0 mg/dL (<2.0); WBC,Urine >182 /hpf (0-5)
[2018-03-26 17:33] LABS: Parathyroid Hormone Intact 216.6 pg/mL (14.0-72.0)
[2018-03-26 18:27] LABS: Iron Saturation 4.51 (15.00-50.00)
== END | disposition home or self-care (01) ==
LOC: LABWHC1 10:32
PROVIDERS: ATTEND Nurse Practitioner Family
DX: N39.0 Urinary tract infection, site not specified (principal); N18.4 Chronic kidney disease, stage 4 (severe); Z94.0 Kidney transplant status; D63.1 Anemia in chronic kidney disease; E83.42 Hypomagnesemia; E55.9 Vitamin D deficiency, unspecified; E79.0 Hyperuricemia without signs of inflammatory arthritis and tophaceous disease
CPT/HCPCS: 36415; 80048; 80197; 81001; 82040; 82728; 83540; 83550; 83735; 83970; 84100; 84550; 85025

== ENCOUNTER → 2018-04-11 | Outpatient (CLI) | payer MEDICARE ==
[2018-04-11 18:51] LABS: Hemoglobin A1C 8.5 % (4.0-6.0)
== END ==
LOC: LABWHC1 09:55
PROVIDERS: ATTEND Internal Medicine
DX: E11.8 Type 2 diabetes mellitus with unspecified complications (principal); Z79.4 Long term (current) use of insulin
CPT/HCPCS: 36415; 83036

== ENCOUNTER → 2018-07-18 | Outpatient (CLI) | payer MEDICARE ==
[2018-07-18 11:41] LABS: Cholesterol 173 mg/dL (<200); HDL Cholesterol 46 mg/dL (40-60); LDL Cholesterol,Calculated 102 mg/dL (0-99); Triglycerides 127 mg/dL (<150)
[2018-07-18 18:21] LABS: Hemoglobin A1C 8.4 % (4.0-6.0)
== END | disposition home or self-care (01) ==
LOC: LABWHC1 10:41
PROVIDERS: ATTEND Internal Medicine
DX: E11.8 Type 2 diabetes mellitus with unspecified complications (principal); Z79.4 Long term (current) use of insulin
CPT/HCPCS: 36415; 80061; 83036

== ENCOUNTER → 2019-04-01 | Outpatient (CLI) | payer MEDICARE ==
[2019-04-01 12:18] LABS: Basophils % (A) 1 %; Eosinophils # (A) 0.1 k/uL (0-0.7); Eosinophils % (A) 2 %; HCT 33.9 % (39.0-53.0); HGB 10.5 gm/dL (13.0-17.5); Hypochromasia Moderate; Lymphocytes # (A) 0.7 k/uL (1.0-4.8); Lymphocytes % (A) 24 %; MCV 87.1 fL (80.0-100.0); Monocytes # (A) 0.1 k/uL (0-1.0); Monocytes % (A) 3 %; Neutrophils # (A) 2.1 k/uL (1.3-7.7); Neutrophils % (A) 68 %; Platelet Count 153 k/uL (150-450); RBC 3.89 m/uL (4.30-5.90); RDW 14.2 % (11.5-15.5); WBC 3.1 k/uL (3.8-10.6)
[2019-04-01 15:03] LABS: Bacteria,Urine Occasional /hpf; Mucus,Urine Rare /hpf; RBC,Urine 2 /hpf (0-5); Squamous Epithelial Cell,Urine <1 /hpf (0-4); WBC,Urine 56 /hpf (0-5)
[2019-04-01 15:06] LABS: Color,Urine Yellow
[2019-04-01 15:07] LABS: Appearance,Urine Clear (Clear); Bilirubin Confirmation, Urine Negative (Negative); Bilirubin,Urine Negative (Negative); Blood,Urine Small (Negative); Glucose,Urine (UA) 3+ (Negative); Ketones,Urine Negative (Negative); PH, Urine 5.5 (5.0-8.0); Protein,Urine 1+ (Negative); Specific Gravity,Urine 1.016 (1.001-1.035); Urobilinogen,Urine <2.0 mg/dL (<2.0)
[2019-04-01 15:08] LABS: Leukocyte Esterase,Urine Moderate (Negative); Nitrite,Urine Negative (Negative)
[2019-04-01 16:56] LABS: Albumin 3.8 g/dL (3.80-4.90); Albumin/Globulin Ratio 1.52 (1.60-3.17); Anion Gap 9.8 mmol/L (4.00-12.00); Calcium 9.3 mg/dL (8.7-10.3); Carbon Dioxide 24.2 mmol/L (21.6-31.8); Globulin 2.5 g/dL (1.6-3.3); Potassium 4.5 mmol/L (3.5-5.5); Total Bilirubin 0.1 mg/dL (0.3-1.2); Total Protein 6.3 g/dL (6.2-8.2)
[2019-04-01 18:38] LABS: Hemoglobin A1C 7.4 % (4.0-6.0)
== END | disposition home or self-care (01) ==
LOC: LABWHC1 10:55
PROVIDERS: ATTEND Internal Medicine
DX: E11.42 Type 2 diabetes mellitus with diabetic polyneuropathy (principal); N30.00 Acute cystitis without hematuria; R30.0 Dysuria
CPT/HCPCS: 36415; 80053; 80169; 81001; 82043; 82570; 83036; 85025; 87086

== ENCOUNTER → 2019-04-09 | Outpatient (CLI) | payer MEDICARE | END | disposition home or self-care (01) | LOC: LABWHC1 10:13 | PROVIDERS: ATTEND Internal Medicine Nephrology | DX: Z48.22 Encounter for aftercare following kidney transplant (principal); Z94.0 Kidney transplant status | CPT/HCPCS: 36415; 80169 ==

== ENCOUNTER → 2019-04-27 | Outpatient (CLI) | payer MEDICARE ==
[2019-04-27 12:40] LABS: Basophils % (A) 1 %; Eosinophils % (A) 2 %; HCT 30.7 % (39.0-53.0); HGB 9.7 gm/dL (13.0-17.5); Hypochromasia Slight; Lymphocytes # (A) 0.5 k/uL (1.0-4.8); Lymphocytes % (A) 21 %; MCH 25.5 pg (25.0-35.0); MCHC 31.6 g/dL (31.0-37.0); Monocytes # (A) 0.2 k/uL (0-1.0); Monocytes % (A) 8 %; Neutrophils # (A) 1.5 k/uL (1.3-7.7); Neutrophils % (A) 66 %; Platelet Count 171 k/uL (150-450); RDW 14.6 % (11.5-15.5); WBC 2.3 k/uL (3.8-10.6)
[2019-04-27 12:47] LABS: MCV 80.8 fL (80.0-100.0)
[2019-04-27 13:24] LABS: Appearance,Urine Clear (Clear); Bilirubin,Urine Negative (Negative); Blood,Urine Negative (Negative); Color,Urine Light Yellow; Glucose,Urine (UA) Trace (Negative); Ketones,Urine Negative (Negative); Leukocyte Esterase,Urine Negative (Negative); Mucus,Urine Rare /hpf; Nitrite,Urine Negative (Negative); PH, Urine 6.5 (5.0-8.0); Protein,Urine 1+ (Negative); RBC,Urine 1 /hpf (0-5); Specific Gravity,Urine 1.014 (1.001-1.035); Urobilinogen,Urine <2.0 mg/dL (<2.0); WBC,Urine 5 /hpf (0-5)
[2019-04-27 16:12] LABS: Vitamin D 25 Hydroxy 32.4 ng/mL (30.0-100.0)
[2019-04-27 16:13] LABS: Albumin 3.2 g/dL (3.80-4.90); Albumin/Globulin Ratio 1.45 (1.60-3.17); Anion Gap 8.9 mmol/L (4.00-12.00); Calcium 9.2 mg/dL (8.7-10.3); Carbon Dioxide 28.1 mmol/L (21.6-31.8); Globulin 2.2 g/dL (1.6-3.3); LDL Cholesterol,Calculated 60.2 mg/dL (0.0-131.0); Magnesium 1.8 mg/dL (1.5-2.4); Phosphorus 3.8 mg/dL (2.4-5.1); Potassium 4.2 mmol/L (3.5-5.5); Total Bilirubin 0.3 mg/dL (0.3-1.2); Total Protein 5.4 g/dL (6.2-8.2); Uric Acid 7.3 mg/dL (3.7-8.7); VLDL Calculation 37.8 mg/dL (5.00-40.00)
[2019-04-27 16:15] LABS: Parathyroid Hormone Intact 97.7 pg/mL (14.0-72.0)
[2019-04-27 23:06] LABS: Creatinine,Urine Random 49.4 mg/dL
[2019-04-27 23:33] LABS: Total Protein,Urine Random 38.2 mg/dL (0.0-13.5)
[2019-04-29 14:36] LABS: CMV DNA Qualitative Not detected (Not detected); CMV DNA, Quantitative <50 IU/mL (<50); LOG CMV Copies/mL <126 Copies/mL (<126); Log Cytomegalovirus <1.70 (<1.70)
== END | disposition home or self-care (01) ==
LOC: LABWHC1 11:07
PROVIDERS: ATTEND Nurse Practitioner Adult Health
DX: N39.0 Urinary tract infection, site not specified (principal); N18.4 Chronic kidney disease, stage 4 (severe); D63.1 Anemia in chronic kidney disease; E55.9 Vitamin D deficiency, unspecified; R80.9 Proteinuria, unspecified; M10.9 Gout, unspecified; N25.81 Secondary hyperparathyroidism of renal origin
CPT/HCPCS: 36415; 80053; 80061; 81001; 82306; 82570; 83735; 83970; 84100; 84156; 84550; 85025; 87497